=== PATIENT | female | born 1930 | race Caucasian/White ===

== ENCOUNTER → 2017-03-01 | Outpatient (CLI) | payer OTHER, MEDICARE ==
[~2017-03-01] MED LIST: FUROSEMIDE 20 MG/2 ML VIAL IVP ONE; FUROSEMIDE 20 MG/2 ML VIAL ONE
== END ==
LOC: FOBOP 11:17 → EDSTATUS 12:15
PROVIDERS: ATTEND Internal Medicine Hematology & Oncology
PROC: 30233N1 Transfusion of Nonautologous Red Blood Cells into Peripheral Vein, Percutaneous Approach (ICD-10-PCS; principal; 2017-03-01)
DX: D50.9 Iron deficiency anemia, unspecified (principal); Z66 Do not resuscitate
CPT/HCPCS: 36430; P9016

== ENCOUNTER 2017-05-03 07:47 | Outpatient (CLI) | payer OTHER, MEDICARE ==
[2017-05-03] MEDS ORDERED: SODIUM BICARBONATE 150 MEQ in D5W 1,000 ML IV ONE (08:08)
[2017-05-03] MEDS ORDERED: IOPAMIDOL (ISOVUE 370) 100 ML BTL IV ONE (09:40)
[2017-05-03 14:46] VITALS: PULSE 80
[2017-05-03 16:27] VITALS: BP 118/61; RESP 14; TEMP 98.2; O2SAT 96
== END 2017-05-03 16:22 | disposition home or self-care (01) ==
LOC: FIMAGING 07:47
PROVIDERS: ATTEND Surgery
DX: I70.213 Atherosclerosis of native arteries of extremities with intermittent claudication, bilateral legs (principal); I70.242 Atherosclerosis of native arteries of left leg with ulceration of calf; I77.1 Stricture of artery
CPT/HCPCS: 75635; Q9967

== ENCOUNTER → 2017-05-09 | Outpatient (CLI) | payer OTHER, MEDICARE ==
[~2017-05-09] MED LIST changes: +ACETAMINOPHEN 325 MG TAB PO ONE; -FUROSEMIDE 20 MG/2 ML VIAL ONE; +HEPARIN 10,000 UNIT/10 ML MDV ONE; +diphenhydrAMINE 25 MG CAP PO ONE
== END ==
LOC: EDSTATUS 07:30 → FOBOP 10:12
PROVIDERS: ATTEND Internal Medicine Hematology & Oncology
PROC: 30233N1 Transfusion of Nonautologous Red Blood Cells into Peripheral Vein, Percutaneous Approach (ICD-10-PCS; principal; 2017-05-09)
DX: D64.9 Anemia, unspecified (principal)
CPT/HCPCS: 36430; P9016; J1644; J1940

== ENCOUNTER 2017-05-10 09:26 | Observation (INO) | payer OTHER, MEDICARE ==
[~2017-05-10 09:26] MED LIST changes: -ACETAMINOPHEN 325 MG TAB PO ONE; -FUROSEMIDE 20 MG/2 ML VIAL IVP ONE; -HEPARIN 10,000 UNIT/10 ML MDV ONE; +NS 1,000 ML IV SCH; -diphenhydrAMINE 25 MG CAP PO ONE
[2017-05-10 10:08] LABS: HEMATOCRIT 33.2 % (38.0-47.0)
[2017-05-10 10:17] LABS: APTT 33.2 SEC (23.0-38.0); INR 1.11 (0.83-1.16); PROTIME(PATIENT) 14.2 SEC (12.0-15.0)
[2017-05-10] MEDS ORDERED: MIDAZOLAM 2 MG/2 ML VIAL ONE ×2 (10:30→10:31)
[2017-05-10] MEDS ORDERED: fentaNYL 100 MCG/2 ML INJ ONE (10:31)
[2017-05-10] MEDS ORDERED: GLUCAGON,HUMAN RECOMBINANT 1 MG VIAL ONE (11:49)
[2017-05-10] MEDS ORDERED: PROTAMINE SULFATE 50 MG/5 ML VIAL IVP ONE (13:02)
[2017-05-10] MEDS ORDERED: IOPAMIDOL (ISOVUE-300) 100 ML BTL ONE (13:08)
[2017-05-10] MEDS ORDERED: LIDOCAINE 1% 300 MG/30 ML SDV ONE (13:09)
[2017-05-10] MEDS ORDERED: OXYCODONE/APAP 5/325 TAB PO PRN (13:49)
[2017-05-10] MEDS ORDERED: traMADol 50 MG TAB PO PRN (13:53)
[2017-05-10] MEDS ORDERED: ONDANSETRON DISINTEGRATING 4 MG TAB PO PRN (13:57)
[2017-05-10] MEDS ORDERED: ONDANSETRON 4 MG/2 ML VIAL IVP PRN (14:03)
[2017-05-10] MEDS ORDERED: ACETAMINOPHEN 325 MG TAB PO PRN (19:08)
--- NOTE | 2017-05-10 20:48 | GHP ---
[f rep st] HISTORY AND PHYSICAL DATE OF ADMISSION: 05/10/2017 CHIEF COMPLAINT: Somnolence and sedation hypoxia. HISTORY OF PRESENT ILLNESS: An 86-year-old female with a history of longstanding smoking and suspec roberta underlying lung disease who is found to be hypoxic after a procedure by Interventional Radiology for stenting both of her common iliac arteries and her right external iliac artery. The patient saldana s chronic painful ischemic ulceration of her left leg and compromised peripheral vascular flow to he r right. Underwent a successful procedure by Dr. Jernigan to reestablish peripheral flow. Post proce durally the patient was noted to be sedated and her oxygen saturations low. Therefore, admitted for observation overnight. Upon my evaluation, patient is denying any experience of shortness of breat h. Denies any recent cough. Denies subjective fevers or chills. Reports that she has been a longs tanding smoker but does not historically require oxygen. Does wake in the mornings with a chronic c ough that clears by mid day. The patient denies active chest pain, palpitations, headache, vision c hanges. She is feeling very sleepy but not dizzy. Denies any abdominal discomfort, nausea, dysuria . She is experiencing some lower extremity pain. PAST MEDICAL HISTORY: 1. Peripheral vascular disease with a chronic wound of the left lower extremity. 2. Thalassemia minor. 3. History of chronic GI bleed with anemia. 4. CKD. 5. Hypertension. 6. History of renal artery stenosis status post angioplasty. 7. History of breast cancer, status post mastectomy. 8. Chronic iron deficiency anemia secondary to ongoing GI losses not controllable by cauterization alone. 9. Tobacco dependence. SOCIAL HISTORY: She smokes a half a pack a day. Denies alcohol or illicit drugs. FAMILY HISTORY: Positive for celiac disease. REVIEW OF SYSTEMS: A 10-point review of systems is negative with the exception of that reported in the HPI. PHYSICAL EXAMINATION: VITAL SIGNS: Blood pressure 118/61, heart rate 80, respiratory rate 14, satu rating 96% on 3 L, 36.8. GENERAL: This is a pleasant elderly female in no acute distress. HEENT: Notable for dry mucous membranes. EYES: Is negative for any icterus. CARDIAC: Patient is regula r rate and rhythm. A systolic murmur is appreciated. PULMONARY: Patient is clear to auscultation bilaterally. GASTROINTESTINAL: Positive bowel sounds. ABDOMEN: Soft and nontender. MUSCULOSKELE INES: There is trace lower extremity edema. SKIN: There is erythema noted in the left lower extrem ity. NEUROLOGIC: She is sedated but oriented x3. PSYCHIATRIC: She is pleasant and cooperative on interview and examination. DATA: Chest x-ray which I personally reviewed and interpreted shows no acute infiltrates or edema. LABORATORY: White count is 9.39, hematocrit is 33.2, that is post 2-unit transfusion recently. Cre atinine is 1.2. ASSESSMENT AND PLAN: This is an 86-year-old female, presenting with hypoxia. 1. Acute hypoxic respiratory failure presumed secondary to medications and underlying lung disease. We will monitor the patient overnight with supplemental oxygen. Suspect we will be able to wean h er back to her baseline in the morning. Chest x-ray is unconcerning for acute underlying process. 2. Peripheral vascular disease. Will continue patient's statin, calcium channel amira, gabapenti n and follow her post procedurally. Dr. Jernigan will be rounding in the morning and can see her prio r to disposition. 3. Chronic anemia. Patient did receive a 2-unit blood transfusion prior to this procedure. Will r echeck her H and H in the morning. I am holding on heparin prophylaxis since the patient is high ri sk for ongoing chronic gastrointestinal bleed. 4. Chronic kidney disease. I have written the patient for normal saline. Post procedure, I can re check her creatinine in the morning. Prophylaxis again holding secondary to her gastrointestinal bl eed history. 5. Diet: Cardiac. DISPOSITION: I expect in less than 2 midnights if the patient recovers well post procedurally. Dis cussed the case with Dr. Jernigan. Patient will be triaged to the medical-surgical floor for observat ion and support post procedurally. /[id number]/MODL
[2017-05-10] MEDS ORDERED: GABAPENTIN 100 MG CAP PO SCH (21:00)
[2017-05-11] MEDS ORDERED: NON-FORMULARY NEW DRUG (Omeprazole [Prilosec 20 Mg] 20 MG) PO SCH (09:00)
[2017-05-11] MEDS ORDERED: LISINOPRIL 20 MG TAB PO SCH (09:00)
[2017-05-11] MEDS ORDERED: amLODIPine BESYLATE 5 MG TAB PO SCH (09:00)
[2017-05-11] MEDS ORDERED: ATORVASTATIN CALCIUM 10 MG TAB PO SCH (09:00)
[2017-05-11] MEDS ORDERED: ALLOPURINOL 100 MG TAB PO SCH (09:00)
[2017-05-11] MEDS ORDERED: CHOLECALCIFEROL VIT D3 1,000 UNITS TAB PO SCH (09:00)
[2017-05-11] MEDS ORDERED: VENLAFAXINE XR 150 MG CAP PO SCH (09:00)
[2017-05-11] MEDS ORDERED: PANTOPRAZOLE SODIUM 40 MG TAB PO SCH (09:00)
[2017-05-11 11:46] VITALS: BP 134/62; PULSE 72; RESP 18; TEMP 98.1; O2SAT 92
--- NOTE | 2017-05-11 12:56 | SOAPPROG ---
MAAME Progress Note Assessment/Plan: Assessment: SUCCESSFUL BILAT ILIAC ANGIOPLASTIES/ RT LEG DOING WELL/ AMBULATING BETTER LEFT LEG WILL NEED FEMORAL ENDARTECTOMY AND FEM POP FOR ULCER HEALING BUT LEFT LEG IS ALREADY IMPROVED Plan:HOME TODAY/ OFFICE SATURDAY/ ART STUDIES / FEM-POP NEXT WEEK 05/11/17 12:53 Objective: Vital Signs Temp Pulse Resp BP Pulse Ox 36.7 C 72 18 134/62 H 92 05/11/17 11:42 05/11/17 11:42 05/11/17 11:42 05/11/17 11:42 05/11/17 11:42 Laboratory Results 05/10/17 09:57 05/10/17 05/11/17 05/12/17 05:59 05:59 05:59 Intake Total 250 Balance 250 PT 14.2 SEC (12.0-15.0) 05/10/17 09:57 INR 1.11 (0.83-1.16) 05/10/17 09:57 ICD10 Worksheet Patient Problems: Problems Problem Status Onset PVD (peripheral vascular disease) with claudication Acute - ICD10 Problem Qualifiers (1) PVD (peripheral vascular disease) with claudication
--- NOTE | 2017-05-11 13:22 | SOAPPROG ---
SOAP Progress Note Assessment/Plan: Assessment: 1. Legs improved after iliac stenting. 2. Hypoxia resolved. Plan: 1. OK to discharge home today. 2. Return for femoral endarterectomies by Dr. Dykes on Saturday. 05/11/17 13:19 05/11/17 13:22 05/11/17 13:26 Subjective: Considerably less pain and tenderness in legs. Patient and daughter note reduced swelling and redness in lower legs. Objective: Somnolence resolved. Pulse Ox 92--95 on room air now. Lungs clear to auscultation. No hematoma at groins. Capillary refill 2s in feet. No popliteal pulses. Vital Signs Temp Pulse Resp BP Pulse Ox 36.7 C 72 18 134/62 H 92 05/11/17 11:42 05/11/17 11:42 05/11/17 11:42 05/11/17 11:42 05/11/17 11:42 Laboratory Results 05/10/17 09:57 05/10/17 05/11/17 05/12/17 05:59 05:59 05:59 Intake Total 250 Balance 250 PT 14.2 SEC (12.0-15.0) 05/10/17 09:57 INR 1.11 (0.83-1.16) 05/10/17 09:57 ICD10 Worksheet Patient Problems: Problems Problem Status Onset PVD (peripheral vascular disease) with claudication Acute
--- NOTE | 2017-05-16 09:58 | GDS ---
[f rep st] DISCHARGE SUMMARY SERVICE: Hospitalist. CONSULT: General Surgery, Ronald Dykes MD. IR, Ronald Jernigan MD. HISTORY AND PHYSICAL: Please see previously dictated note by Dr. [place]. ADMISSION DIAGNOSES: 1. Acute hypoxic respiratory failure. 2. Peripheral vascular disease. 3. Chronic anemia. 4. Chronic kidney disease. DISCHARGE DIAGNOSES: 1. Acute hypoxic respiratory failure, improving. 2. Peripheral vascular disease. 3. Chronic anemia. 4. Chronic kidney disease. HOSPITAL COURSE BY PROBLEM LIST: 1. Acute hypoxic respiratory failure. This is presumed secondary to medications, underlying lung d isease, status post IR procedure. She had stenting of both common iliac arteries and her right exte rnal iliac artery on the day of admission and had ongoing hypoxia status post this intervention. Mari donovan was admitted to PCU for overnight monitoring. During the course of her stay, hypoxia improved. H er and her daughter felt that she was at baseline and she was going to be discharged home with home health services to follow up on her issues/recheck her wound sites. 2. Peripheral vascular disease, status post stenting as mentioned above. She was followed up with Dr. Dykes and her primary care provider, Dr. Reynoso. Home health care to evaluate wounds and status . 3. Chronic anemia. She has transfusions every few months and is followed by [facility]. Her hematocrit has been stable and she is going to be discharged home to follow up with the m per their recommendations. 4. Chronic kidney disease. Creatinine was stable with baseline of 1.1 to 1.3. At discharge it was 1.2. DISCHARGE INSTRUCTIONS: She has been discharged home and instructions were reviewed with her and he r family member. She has been set up with home health care for reevaluation. She should follow up with Dr. Dykes/General Surgery, and her primary care physician within a few days of discharge. If a t any time she has worsening pain, bleeding from her sites, confusion, shortness of breath, difficul ty breathing, or other concerns, she should return to the emergency department immediately for evalu ation. MEDICATION: Please see computer-generated form. /[id number]/MODL
== END 2017-05-11 13:25 | disposition home health service (06) ==
LOC: FIMAGING 09:26 → F2W 20:14
PROVIDERS: ADMIT Hospitalist; ATTEND Hospitalist
PROC: 047C3DZ Dilation of Right Common Iliac Artery with Intraluminal Device, Percutaneous Approach (ICD-10-PCS; principal; 2017-05-10 18:00)
PROC: 047H3DZ Dilation of Right External Iliac Artery with Intraluminal Device, Percutaneous Approach (ICD-10-PCS; principal; 2017-05-10 18:00)
PROC: B440ZZZ Ultrasonography of Abdominal Aorta (ICD-10-PCS; principal; 2017-05-10 18:00)
PROC: B44HZZZ Ultrasonography of Bilateral Lower Extremity Arteries (ICD-10-PCS; principal; 2017-05-10 18:00)
PROC: 047D3DZ Dilation of Left Common Iliac Artery with Intraluminal Device, Percutaneous Approach (ICD-10-PCS; principal; 2017-05-10 18:00)
DX: I70.242 Atherosclerosis of native arteries of left leg with ulceration of calf (principal); I70.211 Atherosclerosis of native arteries of extremities with intermittent claudication, right leg; J96.01 Acute respiratory failure with hypoxia; L97.329 Non-pressure chronic ulcer of left ankle with unspecified severity; I12.9 Hypertensive chronic kidney disease with stage 1 through stage 4 chronic kidney disease, or unspecified chronic kidney disease; I49.9 Cardiac arrhythmia, unspecified; F17.210 Nicotine dependence, cigarettes, uncomplicated; N18.9 Chronic kidney disease, unspecified; Z85.3 Personal history of malignant neoplasm of breast; D50.0 Iron deficiency anemia secondary to blood loss (chronic); D56.9 Thalassemia, unspecified
CPT/HCPCS: 37221; 37223; 71010; 75716; 97162; 97166; 99152; 99153; C1769; C1874; C1876; C1892; C1894; G8978; G8979; G8980; G8987; G8988; J1610; J1644; J2250; J2720; J3010; Q9967

== ENCOUNTER 2017-05-15 10:42 | Inpatient (IN) | payer OTHER, MEDICARE ==
--- NOTE | 2017-05-15 10:14 | PDANEPAE ---
<Douglas Medeiros - Last Filed: 05/15/17 12:47> ANE Review of Systems - Exercise capacity Exercise capacity: <4 METS, limited by disability - Systems Constitutional: Reports: malaise Cardiac: Reports: no symptoms Respiratory: Reports: no symptoms ANE Patient History - Allergies Allergies/Adverse Reactions: sulfa drugs Allergy (Mild, Uncoded 05/10/17 19:37) Unknown - Home Medications Home Medications: Allopurinol [Allopurinol 100 MG (*)] 100 mg PO DAILY 05/10/17 [Last Taken ] Atorvastatin Calcium [Lipitor 10 mg (*)] 10 mg PO DAILY 05/10/17 [Last Taken 03/27] Cholecalciferol Vit D3 [Vitamin D3 (*)] 1,000 units PO DAILY 05/10/17 [Last Taken 05/15/17] Gabapentin [Neurontin 100 MG (*)] 100 mg PO HS 05/10/17 [Last Taken 05/14/17] Hydrocodone/Acetaminophen [[place] 5/325 (*)] 1 - 2 tab PO Q4H PRN 05/10/17 [Last Taken 05/15/17] Lisinopril [Zestril 20 mg (*)] 20 mg PO HS 05/10/17 [Last Taken 05/14/17] Omeprazole [Prilosec 20 mg] 20 mg PO DAILY 05/10/17 [Last Taken 05/15/17] Venlafaxine Xr [Effexor Xr] 150 mg PO DAILY 05/10/17 [Last Taken 05/15/17] amLODIPine BESYLATE [Norvasc 5 mg (*)] 5 mg PO DAILY 05/10/17 [Last Taken ] celeCOXIB [CeleBREX] 100 mg PO BID 05/10/17 [Last Taken 05/15/17 1 cap] traMADol [Ultram 50 mg (*)] 50 mg PO Q4 PRN 05/10/17 [Last Taken 05/15/17] - Alcohol Use Alcohol Use: None ANE Labs/Vital Signs - Labs Result Diagrams: 05/15/17 12:15 ANE Physical Exam - Airway Neck exam: FROM Mallampati Score: Class 3 Mouth exam: poor dentition - Pulmonary Pulmonary: no respiratory distress - Cardiovascular Cardiovascular: regular rate and rhythym - ASA Status ASA Status: IV ANE Anesthesia Plan Anesthesia Plan: general endotracheal anesthesia (with a. line) <JessewalterReed awad - Last Filed: 05/17/17 09:00> ANE Past Medical History - Cardiovascular History Hx Hypertension: Yes Hx Arrhythmias: No Hx Chest Pain: No Hx Coronary Artery / Peripheral Vascular Disease: Yes Hx CHF / Valvular Disease: No Hx Palpitations: No Cardiovascular History Comment: htn. hyperlipidemia. hypercholesterolemia. pvd. chf. edema - Pulmonary History Hx COPD: No Hx Asthma/Reactive Airway Disease: No Hx Recent Upper Respiratory Infection: No Hx Oxygen in Use at Home: No Hx Sleep Apnea: No Pulmonary History Comment: denies - Neurologic History Hx Cerebrovascular Accident: No Hx Seizures: No Hx Dementia: No - Endocrine History Hx Diabetes: No - Renal History Hx Renal Disorders: Yes Renal History Comment: chronic renal insufficiency - Liver History Hx Hepatic Disorders: No - Neurological & Psychiatric Hx Hx Neurological and Psychiatric Disorders: No - Cancer History Hx Cancer: Yes Cancer History Comment: right breast 1999 - Congenital Disorder History Hx Congenital Disorders: No - GI History Hx Gastrointestinal Disorders: Yes Gastrointestinal History Comment: chronic constipation - Other Health History Other Health History: gout. osteopenia. anemia. thalasssemia - Chronic Pain History Chronic Pain: Yes - Surgical History Prior Surgeries: right mastectomy 1999. angioplasty renal vasc htn 1991. synovial cyst removed 08/2003. cataract. t&a ANE Patient History - Smoking Hx Smoking Status: Heavy smoker - Family Anes Hx Family Hx Anesthesia Complications: none ANE Labs/Vital Signs - Labs Result Diagrams: 05/17/17 03:40 05/17/17 03:40
[2017-05-15] MEDS ORDERED: PROTAMINE SULFATE 50 MG/5 ML VIAL IVP ONE ×2 (11:22→11:46)
[2017-05-15] MEDS ORDERED: THROMBIN (BOVINE) 20,000 UNIT SPRAY TP ONE ×2 (11:22→11:46)
[2017-05-15] MEDS ORDERED: PAPAVERINE HCL 60 MG/2 ML SDV ONE ×2 (11:23→11:46)
[2017-05-15] MEDS ORDERED: BUPIVACAINE 0.5% 30 ML SDV ONE ×2 (11:23→11:46)
[2017-05-15] MEDS ORDERED: IOTHALAMATE MEG (CONRAY) 50 ML VIAL IV ONE ×2 (11:23→11:46)
[2017-05-15] MEDS ORDERED: LR 1,000 ML IV SCH (11:32)
[2017-05-15] MEDS ORDERED: ceFAZolin 2 GM/DEXTROSE 100 ML IV ONE (11:32)
[2017-05-15] MEDS ORDERED: LIDOCAINE 1% 2 ML INJ ID PRN (11:37)
[2017-05-15] MEDS ORDERED: LR 1,000 ML IV ONE (11:37)
--- NOTE | 2017-05-15 11:50 | PDHPUP ---
History & Physical Update H&P update statement: This history and physical update is based on an assessment of the patient which was completed after admission or registration (within 24 hours), but prior to the surgery/procedure. H&P update: H&P reviewed & patient examined, no change in patient's condition since H&P completed
[2017-05-15 12:47] LABS: ANION GAP 8 mEq/L (8-16); CALCIUM 9.8 mg/dL (8.5-10.4); CARBON DIOXIDE 20 mEq/l (22-31); CHLORIDE 110 mEq/L (97-110); CREATININE 1.7 mg/dL (0.6-1.0); GLOMERULAR FILTRATION RATE 29; GLUCOSE 82 mg/dL (70-100); POTASSIUM 5.8 mEq/L (3.5-5.2); SODIUM 138 mEq/L (134-144)
[2017-05-15] MEDS ORDERED: traMADol 50 MG TAB PO ONE ×2 (12:59→13:15)
[2017-05-15] MEDS ORDERED: traMADol 50 MG TAB ONE (13:28)
[2017-05-15] MEDS: NS 1,000 ML IV SCH (18:33)
[2017-05-15 19:23] LABS: COLOR PALE YELLOW; LEUKOCYTE ESTERASE,URINE 1+ (NEGATIVE); NITRITE,URINE NEGATIVE (NEGATIVE)
[2017-05-15 19:30] LABS: MUCUS TRACE /lpf (NONE-1+)
[2017-05-15 19:31] LABS: RBC,URINE NONE SEEN /hpf (0-3)
[2017-05-15] MEDS: HYDROCODONE/APAP 5/325 TAB PO PRN (20:45)
[2017-05-15] MEDS: GABAPENTIN 100 MG CAP PO SCH (20:46)
[2017-05-16 04:27] LABS: % IMMATURE GRANULYOCYTES 0.7 % (0.0-1.1); ABSOLUTE IMMATURE GRANULOCYTES 0.06 10^3/uL (0.00-0.10); ADD DIFF? NO; ADD MORPH? YES; ADD SCAN? NO; ATYPICAL LYMPHOCYTE FLAG 0 (0-99); FRAGMENT RBC FLAG 40 (0-99); HEMATOCRIT 29.5 % (38.0-47.0); HEMOGLOBIN 9.2 g/dL (12.6-16.3); LEFT SHIFT FLG 30 (0-99); LIPEMIA HEMOLYSIS FLAG 80 (0-99); MEAN CELL HEMOGLOBIN 22.7 pg (27.9-34.1); MEAN CELL HEMOGLOBIN CONCENTR. 31.2 g/dL (32.4-36.7); MEAN CELL VOLUME 72.8 fL (81.5-99.8); MEAN PLATELET VOLUME 12.6 fL (8.7-11.7); PLATELET CLUMPS FLAG 0 (0-99); PLATELET COUNT 204 10^3/uL (150-400); RED BLOOD CELL COUNT 4.05 10^6/uL (4.18-5.33)
[2017-05-16 04:29] LABS: RED CELL DISTRIBUTION WIDTH 20.9 % (11.5-15.2)
--- NOTE | 2017-05-16 04:32 | GCON ---
[f rep st] CONSULTATION THIS IS A MEDICINE CONSULTATION, AT THE REQUEST OF DR. DAMARIS HARDWICK, FOR EVALUATION AND MANAGEMENT OF ACUTE KIDNEY INJURY. DATE OF CONSULTATION: 05/15/2017 CHIEF COMPLAINT: Leg pain. HISTORY: This is an 86-year-old female, who has a chronic posterior lower leg ulceration related to initially trauma and nonhealing secondary to significant arterial disease. She has recently underg one vascular stenting of both her common iliac arteries and a right external iliac artery, and was b rought in for a planned femoral-popliteal bypass surgery. In the preop evaluation it was noted that her kidney function was worse than her usual baseline, with a creatinine of 1.7 today, and a genera l baseline around 1.5. In discussion with the patient, she does not note any recent illness, but st ates that she is aware that she had dye recently and wonders if her kidney function is off secondary to that. She notes she drinks a large amount of fluids every day, and this has not changed. She h as been eating well. She has had no urinary issues that she is aware of. She has had no fevers or chills. Her leg does continue to hurt. PAST MEDICAL HISTORY: Includes: 1. Peripheral vascular disease, with chronic lower extremity wound. 2. History of thalassemia minor. 3. History of chronic GI bleed, with chronic anemia. 4. Chronic kidney disease. Baseline creatinine approximately 1.5. 5. Hypertension. 6. Renal artery stenosis, status post angioplasty. 7. History of breast cancer, status post mastectomy. 8. Current tobacco use. 9. Tonsillectomy and adenoidectomy. 10. Hemilaminectomy L5 through S1. 11. Open cholecystectomy. 12. Bilateral cataract surgery. FAMILY HISTORY: Parents are . SOCIAL HISTORY: Patient is a daily pack per day smoker. She denies alcohol or illicit drugs. MEDICATIONS: Include at home: 1. Tramadol. 2. Celebrex. 3. Amlodipine. 4. Venlafaxine. 5. Omeprazole. 6. Lisinopril. 7. [place]. 8. Gabapentin. 9. Cholecalciferol. 10. Atorvastatin. 11. Allopurinol. ALLERGIES: Include sulfa. PHYSICAL EXAMINATION: VITAL SIGNS: Reviewed and remarkable for a blood pressure of 148/100, O2 sat s of 88% on room air, temperature is 36.7. GENERAL APPEARANCE: Elderly female, awake, and alert. No acute distress. EYES: Anicteric. HEENT: Poor dentition. Oropharynx clear. CARDIOVASCULAR: Regular rate and rhythm, no MRG. PULMO NARY: CTA bilaterally to anterior exam. ABDOMEN: Soft, nontender, nondistended. EXTREMITIES: Le ft lower extremity with chronic wounds and tender to palpation. There is trace lower extremity anahi a. NEUROLOGIC/PSYCHIATRIC: Oriented and appropriate, pleasant. CLINICAL DATA: Labs are reviewed. Significant for a fairly recent normal CBC. Chemistry is notabl e for a potassium of 5.8, creatinine of 1.7. Chest x-ray, from 05/10/2017, personally reviewed and interpreted, shows nothing acute. ASSESSMENT/PLAN: This is an 86-year-old female, with past medical history of chronic kidney disease and peripheral vascular disease, presenting for a femoral-popliteal bypass, found to have acute kid rudy injury on chronic kidney disease. 1. Acute kidney injury on chronic kidney disease. Patient is noted to have significant fluctuation in her baseline creatinine, but does appear to usually run closer to 1.5. She did recently have a dye load for her angioplasty and certainly could be some residual contrast-induced nephropathy prese nt. She does not appear to be dry. We will check a bladder scan, but she does not have any complai nts that would indicate urinary retention. We will check a urinalysis to rule out a urinary tract i nfection, but she does not have any suggestion of infection by history. Will provide gentle IV flui ds overnight. We will calculate a fractional excretion of sodium base once her urine studies have b een obtained. 2. Hyperkalemia, this is mild and in the setting of acute kidney injury on top of chronic kidney di sease. We will recheck in the morning. Will obtain an EKG to rule out any associated EKG changes. We will hold off on any medication, other than saline, to decrease her potassium, unless her EKG sh ows hyperkalemic changes. 3. Peripheral vascular disease, with plans for femoral-popliteal bypass. She is status post angiop lasty last week. She does have chronic lower extremity wounds associated with this. Wound Care kevin l be consulted. 4. Hypertension. Given her acute kidney injury, will hold her lisinopril. Her blood pressure curr ently is within goal for her age. We will continue her amlodipine and monitor. 5. Pain. Given her acute kidney injury, will hold her usual Celebrex. She does take renally dosed gabapentin and renally dosed allopurinol, which can be continued. Pain is currently controlled on her usual tramadol and [place]. 6. Disposition: Inpatient status. Patient will need greater than 48-hour stay for evaluation and management of above. 7. The patient is new to my care. Old records reviewed, summarized as per History Of Present Illne ss and Past Medical History. Care plan reviewed with Surgery, including plans for management of acu te kidney injury. Medicine will continue to follow while patient is in-house. Thank you for this c onsultation. /[id number]/MODL
[2017-05-16 04:39] LABS: ANION GAP 9 mEq/L (8-16); CALCIUM 9.2 mg/dL (8.5-10.4); CARBON DIOXIDE 19 mEq/l (22-31); CHLORIDE 113 mEq/L (97-110); CREATININE 1.4 mg/dL (0.6-1.0); GLOMERULAR FILTRATION RATE 36; GLUCOSE 72 mg/dL (70-100); POTASSIUM 4.6 mEq/L (3.5-5.2); SODIUM 141 mEq/L (134-144)
[2017-05-16 05:16] LABS: PLATELET ESTIMATE ADEQUATE (ADEQ)
[2017-05-16 05:19] LABS: HYPOCHROMIA 1+; POLYCHROMASIA 1+; TARGET CELLS 1+
--- NOTE | 2017-05-16 08:44 | WOCRNPDOC ---
GORDY Advanced Assessment Note - Skin Integrity Problem, Advanced Assess Left Lower Leg Dressing Type: Allevyn Life Dressing Description: Clean/Dry, Intact Exudate Amount: Scant Exudate Characteristic(s): Serosanguinous Integumentary Issue Intervention: Visualized Under Dressing Ector Wound Tissue: Erythema, Excoriated, Shiny, Thin Wound Bed Constitution: Adhered Slough, Loose Slough Wound Edges: Well Defined Site Odor: Slight Site Measurement - Head-to-Toe Length X Width X Depth (cm): Left Medial art ulcer: 1x1x0.2, Posterior: 2x1.5x1, Lateral: 1.5x1x0.2 Extremity Temperature: Warm Skin Integrity Problem Comment: 3 Seperate wounds surrounded by ector wound erythema and excoriation. Patient reports having a lot of itching with uncontrolled scratching recently. All wounds are 100% slough. Will initiate autolytic debridement with a iodosorb gel which will also address the probably biofilm development on her wounds. Will need to fill defect on posterior wound with alginate. Wound care will round again on Monday 05/21. Report to Jasmyn LOERA.
[2017-05-16] MEDS ORDERED: NON-FORMULARY NEW DRUG (Omeprazole [Prilosec 20 Mg] 20 MG) PO SCH (09:00)
[2017-05-16] MEDS: ATORVASTATIN CALCIUM 10 MG TAB PO SCH (09:48)
[2017-05-16] MEDS: VENLAFAXINE XR 150 MG CAP PO SCH (09:48)
[2017-05-16] MEDS: CHOLECALCIFEROL VIT D3 1,000 UNITS TAB PO SCH (09:49)
[2017-05-16] MEDS: NS 1,000 ML IV SCH ×2 (09:49→23:00)
[2017-05-16] MEDS: PANTOPRAZOLE SODIUM 40 MG TAB PO SCH (09:49)
[2017-05-16] MEDS: amLODIPine BESYLATE 5 MG TAB PO SCH (09:49)
[2017-05-16] MEDS: HYDROCODONE/APAP 5/325 TAB PO PRN ×2 (13:15→23:39)
--- NOTE | 2017-05-16 16:08 | HOSPPROG ---
Hospitalist Progress Note Objective: Vital Signs Temp Pulse Resp BP Pulse Ox 36.8 C 76 18 119/66 95 05/16/17 15:13 05/16/17 15:13 05/16/17 15:13 05/16/17 15:13 05/16/17 15:13 Laboratory Results 05/16/17 03:37 05/16/17 03:37 05/15/17 05/16/17 05/17/17 06:59 06:59 06:59 Intake Total 1400 Output Total 350 Balance 1050 ICD10 Worksheet Patient Problems: Problems Problem Status Onset PVD (peripheral vascular disease) with claudication Acute
--- NOTE | 2017-05-16 17:18 | HOSPPROG ---
Hospitalist Progress Note Assessment/Plan: DIAGNOSES: -acute on chronic renal failure, hemodynamic etiology and responding well to hydration -hyperkalemia resolved -peripheral vascular disease with nonhealing ankle ulcer -chronic microcytic anemia with repleted iron stores PLANS: The patient's surgery has been delayed until tomorrow Will continue hydration and follow renal function and potassium closely NPO after midnight SUBJECTIVE: The patient has intermittent moderate to mild pain at her ankle otherwise feels comfortable and is eating well OBJECTIVE Vitals reviewed: Stable without fever [employer], my review: Sinus Exam: alert oriented skin warm dry color ok resps not labored lungs clear BSs heart regular abd soft nondistended nontender, bowel sounds present iv site ok Lab data creatinine improved to 1.4 Objective: Vital Signs Temp Pulse Resp BP Pulse Ox 36.8 C 76 18 119/66 95 05/16/17 15:13 05/16/17 15:13 05/16/17 15:13 05/16/17 15:13 05/16/17 15:13 Laboratory Results 05/16/17 03:37 05/16/17 03:37 05/15/17 05/16/17 05/17/17 06:59 06:59 06:59 Intake Total 1400 Output Total 350 Balance 1050 ICD10 Worksheet Patient Problems: Problems Problem Status Onset PVD (peripheral vascular disease) with claudication Acute
--- NOTE | 2017-05-16 18:58 | SOAPPROG ---
MAAME Progress Note Assessment/Plan: Assessment: APPEARS TO BE DOING WELL WITH CORRECTION OF HER POTASSIUM AND CREATININE LEVELS/ RISKS AND OPTIONS FULLY DISCUSSED AND SHE WISHES TO PROCEED WITH SURGERY TOMORROW Plan: LEFT FEM-POP BYPASS 05/16/17 18:57 Objective: Vital Signs Temp Pulse Resp BP Pulse Ox 36.8 C 76 18 119/66 95 05/16/17 15:13 05/16/17 15:13 05/16/17 15:13 05/16/17 15:13 05/16/17 15:13 Laboratory Results 05/16/17 03:37 05/16/17 03:37 05/15/17 05/16/17 05/17/17 05:59 05:59 05:59 Intake Total 1400 900 Output Total 200 150 Balance 1200 750 ICD10 Worksheet Patient Problems: Problems Problem Status Onset PVD (peripheral vascular disease) with claudication Acute
[2017-05-16] MEDS: GABAPENTIN 100 MG CAP PO SCH (21:01)
[2017-05-17 04:39] LABS: % IMMATURE GRANULYOCYTES 0.9 % (0.0-1.1); ABSOLUTE IMMATURE GRANULOCYTES 0.08 10^3/uL (0.00-0.10); ADD DIFF? NO; ADD MORPH? YES; ADD SCAN? NO; ATYPICAL LYMPHOCYTE FLAG 40 (0-99); FRAGMENT RBC FLAG 60 (0-99); HEMATOCRIT 28.7 % (38.0-47.0); HEMOGLOBIN 9.1 g/dL (12.6-16.3); LEFT SHIFT FLG 30 (0-99); LIPEMIA HEMOLYSIS FLAG 80 (0-99); MEAN CELL HEMOGLOBIN CONCENTR. 31.7 g/dL (32.4-36.7); MEAN CELL VOLUME 72.5 fL (81.5-99.8); PLATELET CLUMPS FLAG 10 (0-99); PLATELET COUNT 210 10^3/uL (150-400); RED BLOOD CELL COUNT 3.96 10^6/uL (4.18-5.33)
[2017-05-17 04:43] LABS: INR 1.15 (0.83-1.16); PROTIME(PATIENT) 14.7 SEC (12.0-15.0)
[2017-05-17 04:44] LABS: RED CELL DISTRIBUTION WIDTH 20.7 % (11.5-15.2)
[2017-05-17 04:58] LABS: ALANINE AMINOTRANSFERASE 31 IU/L (9-52); ALBUMIN 2.7 g/dL (3.5-5.0); ALKALINE PHOSPHATASE 97 IU/L (38-126); ANION GAP 7 mEq/L (8-16); ASPARTATE AMINOTRANSFERASE 17 IU/L (14-46); BILIRUBIN,TOTAL 0.7 mg/dL (0.1-1.4); BILIRUBIN-CONJUGATED 0.4 mg/dL (0.0-0.5); BILIRUBIN-UNCONJUGATED 0.3 mg/dL (0.0-1.1); CALCIUM 9.1 mg/dL (8.5-10.4); CARBON DIOXIDE 21 mEq/l (22-31); CHLORIDE 113 mEq/L (97-110); CREATININE 1.3 mg/dL (0.6-1.0); GLOMERULAR FILTRATION RATE 39; GLUCOSE 77 mg/dL (70-100); POTASSIUM 4.7 mEq/L (3.5-5.2); SODIUM 141 mEq/L (134-144); TOTAL PROTEIN 5.1 g/dL (6.3-8.2)
[2017-05-17 05:02] LABS: HYPOCHROMIA 1+; MICROCYTES 1+; POLYCHROMASIA 1+
[2017-05-17 05:03] LABS: ACANTHOCYTES 1+; PLATELET ESTIMATE ADEQUATE (ADEQ); SCHISTOCYTES 1+; TARGET CELLS 1+
[2017-05-17] MEDS: HYDROCODONE/APAP 5/325 TAB PO PRN (05:55)
[2017-05-17] MEDS: ATORVASTATIN CALCIUM 10 MG TAB PO SCH (08:47)
[2017-05-17] MEDS: VENLAFAXINE XR 150 MG CAP PO SCH (08:47)
[2017-05-17] MEDS: CHOLECALCIFEROL VIT D3 1,000 UNITS TAB PO SCH (08:47)
[2017-05-17] MEDS: PANTOPRAZOLE SODIUM 40 MG TAB PO SCH (08:47)
[2017-05-17] MEDS: amLODIPine BESYLATE 5 MG TAB PO SCH (08:47)
[2017-05-17] MEDS ORDERED: THROMBIN (BOVINE) 20,000 UNIT SPRAY TP ONE (09:03)
[2017-05-17] MEDS ORDERED: PAPAVERINE HCL 60 MG/2 ML SDV ONE (09:03)
[2017-05-17] MEDS ORDERED: IOTHALAMATE MEG (CONRAY) 50 ML VIAL IV ONE ×2 (09:03→13:24)
[2017-05-17] MEDS ORDERED: PROTAMINE SULFATE 50 MG/5 ML VIAL IVP ONE (09:03)
[2017-05-17] MEDS ORDERED: BUPIVACAINE 0.5% 30 ML SDV ONE (09:03)
[2017-05-17] MEDS ORDERED: NS 1,000 ML IV ONE (11:32)
--- NOTE | 2017-05-17 11:47 | PDANEPAE ---
ANE Past Medical History - Cardiovascular History Hx Hypertension: Yes Hx Arrhythmias: No Hx Chest Pain: No Hx Coronary Artery / Peripheral Vascular Disease: Yes Hx CHF / Valvular Disease: No Hx Palpitations: No Cardiovascular History Comment: htn. hyperlipidemia. hypercholesterolemia. pvd. chf. edema - Pulmonary History Hx COPD: No Hx Asthma/Reactive Airway Disease: No Hx Recent Upper Respiratory Infection: No Hx Oxygen in Use at Home: No Hx Sleep Apnea: No Sleep Apnea Screening Result - Last Documented: Positive Pulmonary History Comment: denies - Neurologic History Hx Cerebrovascular Accident: No Hx Seizures: No Hx Dementia: No - Endocrine History Hx Diabetes: No Obesity: yes, mild - Renal History Hx Renal Disorders: Yes Renal History Comment: chronic renal insufficiency - Liver History Hx Hepatic Disorders: No - Neurological & Psychiatric Hx Hx Neurological and Psychiatric Disorders: No - Cancer History Hx Cancer: Yes Cancer History Comment: right breast 1999 - Congenital Disorder History Hx Congenital Disorders: No - GI History Hx Gastrointestinal Disorders: Yes Gastrointestinal History Comment: chronic constipation - Other Health History Other Health History: gout. osteopenia. anemia. thalasssemia - Chronic Pain History Chronic Pain: Yes - Surgical History Prior Surgeries: right mastectomy 1999. angioplasty renal vasc htn 1991. synovial cyst removed 08/2003. cataract. t&a ANE Patient History - Allergies Allergies/Adverse Reactions: sulfa drugs Allergy (Mild, Uncoded 05/10/17 19:37) Unknown - Home Medications Home Medications: Allopurinol [Allopurinol 100 MG (*)] 100 mg PO DAILY 05/10/17 [Last Taken ] Atorvastatin Calcium [Lipitor 10 mg (*)] 10 mg PO DAILY 05/10/17 [Last Taken 03/27] Cholecalciferol Vit D3 [Vitamin D3 (*)] 1,000 units PO DAILY 05/10/17 [Last Taken 05/15/17] Gabapentin [Neurontin 100 MG (*)] 100 mg PO HS 05/10/17 [Last Taken 05/14/17] Hydrocodone/Acetaminophen [[place] 5/325 (*)] 1 - 2 tab PO Q4H PRN 05/10/17 [Last Taken 05/15/17] Lisinopril [Zestril 20 mg (*)] 20 mg PO HS 05/10/17 [Last Taken 05/14/17] Omeprazole [Prilosec 20 mg] 20 mg PO DAILY 05/10/17 [Last Taken 05/15/17] Venlafaxine Xr [Effexor Xr] 150 mg PO DAILY 05/10/17 [Last Taken 05/15/17] amLODIPine BESYLATE [Norvasc 5 mg (*)] 5 mg PO DAILY 05/10/17 [Last Taken ] celeCOXIB [CeleBREX] 100 mg PO BID 05/10/17 [Last Taken 05/15/17 1 cap] traMADol [Ultram 50 mg (*)] 50 mg PO Q4 PRN 05/10/17 [Last Taken 05/15/17] - NPO status NPO Since - Liquids (Date): 05/15/17 NPO Since - Liquids (Time): 07:00 NPO Since - Solids (Date): 05/14/17 NPO Since - Solids (Time): 20:00 - Smoking Hx Smoking Status: Heavy smoker - Alcohol Use Alcohol Use: None - Family Anes Hx Family Hx Anesthesia Complications: none ANE Labs/Vital Signs - Labs Result Diagrams: 05/17/17 03:40 05/17/17 03:40 - Vital Signs Blood Pressure: 159/70 Heart Rate: 56 Respiratory Rate: 14 O2 Sat (%): 96 Height: 167.64 cm Weight: 83.1 kg ANE Physical Exam - Airway Neck exam: FROM Mouth exam: poor dentition, dentures - Pulmonary Pulmonary: no respiratory distress, reduced air movement - Cardiovascular Cardiovascular: regular rate and rhythym - ASA Status ASA Status: III ANE Anesthesia Plan Anesthesia Plan: GA w LMA Lines/Monitors: arterial line
[2017-05-17] MEDS ORDERED: PROPOFOL 200 MG/20 ML VIAL ONE (11:54)
[2017-05-17] MEDS ORDERED: fentaNYL 100 MCG/2 ML INJ ONE ×4 (11:54→15:47)
[2017-05-17] MEDS ORDERED: LIDOCAINE 2% 5 ML SDV ONE ×2 (11:55→13:03)
[2017-05-17] MEDS ORDERED: DEXAMETHASONE 4 MG/ML VIAL ONE (11:56)
[2017-05-17] MEDS ORDERED: ONDANSETRON 4 MG/2 ML VIAL ONE (11:56)
[2017-05-17] MEDS ORDERED: DEXMEDETOMIDINE HCL 200 MCG/2 ML VIAL IV ONE (12:25)
[2017-05-17] MEDS ORDERED: ceFAZolin 1 GM VIAL ONE ×2 (12:38)
[2017-05-17] MEDS ORDERED: KETAMINE 100 MG/10 ML SYR ONE (12:47)
[2017-05-17] MEDS ORDERED: NALOXONE HCL 0.4 MG/ML INJ IVP PRN (13:27)
[2017-05-17] MEDS ORDERED: LABETALOL HCL 50 MG/10 ML SYR IVP PRN (13:27)
[2017-05-17] MEDS ORDERED: ONDANSETRON 4 MG/2 ML VIAL IVP PRN (13:27)
[2017-05-17] MEDS ORDERED: DEXAMETHASONE 4 MG/ML VIAL IVP PRN (13:27)
[2017-05-17] MEDS ORDERED: OXYCODONE/APAP 5/325 TAB PO PRN (13:27)
[2017-05-17] MEDS ORDERED: PROMETHAZINE HCL 25 MG/ML INJ IVP PRN (13:27)
[2017-05-17] MEDS ORDERED: HEPARIN 10,000 UNIT/10 ML MDV ONE (13:33)
[2017-05-17] MEDS ORDERED: HYDROmorphONE/DILAUDID 1 MG/ML SYR IVP PRN (15:24)
--- NOTE | 2017-05-17 15:26 | POSTOPPROG ---
Post Op Note Date of Operation: 05/17/17 Surgeon: Ronald Dykes Assessment Coordinator: Kelly Peres Anesthesiologist: Efren Yanes Anesthesia: GET(General Endotracheal) Pre-op Diagnosis: PVD, nonhealing ulcer Post-op Diagnosis: same Procedure: Left fem bypass c femoral endarectomy and profundoplasty Findings: fair to weak doppler pedal pulses post procedure, improved from preop Inf/Abcess present in the surg proc area at time of surgery?: No EBL: 50-100 Complications: none
[2017-05-17] MEDS: fentaNYL 100 MCG/2 ML INJ IVP PRN ×2 (15:49→16:14)
--- NOTE | 2017-05-17 15:50 | HOSPPROG ---
Hospitalist Progress Note Assessment/Plan: DIAGNOSES: -acute on chronic renal failure, hemodynamic etiology and responding well to hydration -will need to follow closely post op but I expect will do fine -hyperkalemia resolved -peripheral vascular disease with nonhealing ankle ulcer; now s/p femoral a. 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: Sinus Exam: alert oriented skin warm dry color ok resps not labored lungs clear BSs heart regular abd soft nondistended nontender, bowel sounds present iv site ok Lab data: creatinine improved to 1.3 Objective: Vital Signs Temp Pulse Resp BP Pulse Ox 36.9 C 56 L 12 100/54 L 95 05/17/17 15:35 05/17/17 15:35 05/17/17 15:42 05/17/17 15:42 05/17/17 15:42 Laboratory Results 05/17/17 03:40 05/17/17 03:40 05/16/17 05/17/17 05/18/17 06:59 06:59 06:59 Intake Total 1400 1950 1100 Output Total 350 1250 650 Balance 1050 700 450 PT 14.7 SEC (12.0-15.0) 05/17/17 03:40 INR 1.15 (0.83-1.16) 05/17/17 03:40 ICD10 Worksheet Patient Problems: Problems Problem Status Onset PVD (peripheral vascular disease) with claudication Acute
[2017-05-17] MEDS ORDERED: HYDROmorphONE/DILAUDID 1 MG/ML SYR ONE (16:24)
[2017-05-17] MEDS: HYDROmorphONE/DILAUDID 1 MG/ML SYR IVP PRN ×2 (16:50→17:13)
--- NOTE | 2017-05-17 16:54 | POSTANESTH ---
Post Anesthetic Evaluation Cardiovascular Status: Normal, Stable, Similar to Pre-Op Cond Respiratory Status: Similar to Pre-op Cond. Level of Consciousness/Mental Status: Can Participate in Eval, Moderately Sleepy Pain Control: Adequate, Prn Tx Ordered Nausea/Vomiting Control: Adequate, Prn Tx Ordered Complications Possibly Related to Anesthesia: None Noted
[2017-05-17] MEDS: NS 1,000 ML IV SCH (19:00)
[2017-05-17] MEDS: GABAPENTIN 100 MG CAP PO SCH (20:41)
[2017-05-18] MEDS: HYDROCODONE/APAP 5/325 TAB PO PRN ×4 (04:30→23:22)
[2017-05-18] MEDS: NS 1,000 ML IV SCH (04:42)
[2017-05-18] MEDS: amLODIPine BESYLATE 5 MG TAB PO SCH (05:13)
[2017-05-18 05:41] LABS: HEMATOCRIT 28.4 % (38.0-47.0); HEMOGLOBIN 8.9 g/dL (12.6-16.3)
[2017-05-18 06:01] LABS: ANION GAP 8 mEq/L (8-16); CALCIUM 8.6 mg/dL (8.5-10.4); CARBON DIOXIDE 19 mEq/l (22-31); CHLORIDE 113 mEq/L (97-110); CREATININE 1.3 mg/dL (0.6-1.0); GLOMERULAR FILTRATION RATE 39; GLUCOSE 107 mg/dL (70-100); POTASSIUM 4.8 mEq/L (3.5-5.2); SODIUM 140 mEq/L (134-144)
[2017-05-18] MEDS: ATORVASTATIN CALCIUM 10 MG TAB PO SCH (08:46)
[2017-05-18] MEDS: PANTOPRAZOLE SODIUM 40 MG TAB PO SCH (08:46)
[2017-05-18] MEDS: CHOLECALCIFEROL VIT D3 1,000 UNITS TAB PO SCH (08:46)
[2017-05-18] MEDS: VENLAFAXINE XR 150 MG CAP PO SCH (08:46)
[2017-05-18] MEDS ORDERED: NS 500 ML IV ONE (12:14)
--- NOTE | 2017-05-18 12:19 | HOSPPROG ---
Hospitalist Progress Note Assessment/Plan: DIAGNOSES: -acute hypotension just now, suspect due to pain med she just had, but cause uncertain -acute on chronic renal failure, hemodynamic etiology and responding well to hydration -will continue to follow, and will need to maintain good blood pressures -hyperkalemia resolved -peripheral vascular disease with nonhealing ankle ulcer; now s/p femoral a. 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, 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: Sinus Exam: alert oriented relaxed skin warm dry color ok, good cap refill in fingers resps not labored lungs clear BSs heart regular abd soft nondistended nontender, bowel sounds present leg with good color to toes and warm no visible sign of bleeding iv site ok Lab data: creatinine stable 1.3, baseline 1.1 3 months ago Objective: Vital Signs Temp Pulse Resp BP Pulse Ox 36.8 C 73 13 122/46 H 96 05/18/17 08:00 05/18/17 10:00 05/18/17 10:00 05/18/17 10:00 05/18/17 10:00 Laboratory Results 05/18/17 04:35 05/18/17 04:35 05/17/17 05/18/17 05/19/17 06:59 06:59 06:59 Intake Total 1950 4130 Output Total 1250 1400 Balance 700 2730 PT 14.7 SEC (12.0-15.0) 05/17/17 03:40 INR 1.15 (0.83-1.16) 05/17/17 03:40 ICD10 Worksheet Patient Problems: Problems Problem Status Onset PVD (peripheral vascular disease) with claudication Acute
--- NOTE | 2017-05-18 12:32 | SOAPPROG ---
MAAME Progress Note Assessment/Plan: Assessment: s/p left femoral bypass with femoral endarterectomy Doing very well No bending at hip PT Can transfer to SDU Heparin 5000 units SQ TID S: Seems slightly confused but well Foot is warm with good sensation dressings dry Pulse not palpable to me Sitting in bed with family at bedside Lungs decreased at bases Regular rate Plan: 05/18/17 12:29 Objective: Vital Signs Temp Pulse Resp BP Pulse Ox 36.8 C 79 18 72/44 L 95 05/18/17 08:00 05/18/17 12:00 05/18/17 12:00 05/18/17 12:00 05/18/17 12:00 Laboratory Results 05/18/17 04:35 05/18/17 04:35 05/17/17 05/18/17 05/19/17 05:59 05:59 05:59 Intake Total 1950 4130 Output Total 1400 1400 Balance 550 2730 PT 14.7 SEC (12.0-15.0) 05/17/17 03:40 INR 1.15 (0.83-1.16) 05/17/17 03:40 ICD10 Worksheet Patient Problems: Problems Problem Status Onset PVD (peripheral vascular disease) with claudication Acute
[2017-05-18] MEDS: HEPARIN 5,000 UNIT/0.5 ML SYR SC SCH ×2 (16:36→22:43)
[2017-05-18] MEDS: GABAPENTIN 100 MG CAP PO SCH (19:54)
[2017-05-19] MEDS: HYDROCODONE/APAP 5/325 TAB PO PRN ×5 (04:03→22:49)
[2017-05-19] MEDS: HEPARIN 5,000 UNIT/0.5 ML SYR SC SCH ×3 (04:04→22:49)
[2017-05-19 08:42] LABS: % IMMATURE GRANULYOCYTES 0.9 % (0.0-1.1); ABSOLUTE IMMATURE GRANULOCYTES 0.08 10^3/uL (0.00-0.10); ADD DIFF? NO; ADD MORPH? YES; ADD SCAN? NO; ATYPICAL LYMPHOCYTE FLAG 40 (0-99); FRAGMENT RBC FLAG 40 (0-99); HEMATOCRIT 27.3 % (38.0-47.0); HEMOGLOBIN 8.8 g/dL (12.6-16.3); LEFT SHIFT FLG 10 (0-99); LIPEMIA HEMOLYSIS FLAG 80 (0-99); MEAN CELL HEMOGLOBIN 22.7 pg (27.9-34.1); MEAN CELL HEMOGLOBIN CONCENTR. 32.2 g/dL (32.4-36.7); MEAN CELL VOLUME 70.5 fL (81.5-99.8); PLATELET CLUMPS FLAG 10 (0-99); PLATELET COUNT 233 10^3/uL (150-400); RED BLOOD CELL COUNT 3.87 10^6/uL (4.18-5.33)
--- NOTE | 2017-05-19 08:50 | SOAPPROG ---
SOAP Progress Note Assessment/Plan: Assessment: s/p left femoral bypass with femoral endarterectomy Iliac stents Some abdominal pain today - getting labs No bending at hip PT Heparin 5000 units SQ TID S: Complaining of epigastric discomfort and slight nausea. Foot is warm with good sensation Incisions cdi Pulse not palpable to me Lungs decreased at bases Regular rate Plan: 05/18/17 12:29 05/19/17 08:49 Objective: Vital Signs Temp Pulse Resp BP Pulse Ox 36.8 C 75 14 152/63 H 93 05/19/17 08:00 05/19/17 08:00 05/19/17 08:00 05/19/17 08:00 05/19/17 08:00 05/18/17 05/19/17 05/20/17 05:59 05:59 05:59 Intake Total 4130 700 Output Total 1400 1750 Balance 2730 -1050 PT 14.7 SEC (12.0-15.0) 05/17/17 03:40 INR 1.15 (0.83-1.16) 05/17/17 03:40 ICD10 Worksheet Patient Problems: Problems Problem Status Onset PVD (peripheral vascular disease) with claudication Acute
[2017-05-19 08:58] LABS: RED CELL DISTRIBUTION WIDTH 20.5 % (11.5-15.2)
[2017-05-19 09:08] LABS: ANION GAP 7 mEq/L (8-16); CALCIUM 8.9 mg/dL (8.5-10.4); CARBON DIOXIDE 21 mEq/l (22-31); CHLORIDE 113 mEq/L (97-110); CREATININE 1.1 mg/dL (0.6-1.0); GLOMERULAR FILTRATION RATE 47; GLUCOSE 75 mg/dL (70-100); POTASSIUM 4.1 mEq/L (3.5-5.2); SODIUM 141 mEq/L (134-144)
[2017-05-19] MEDS: CHOLECALCIFEROL VIT D3 1,000 UNITS TAB PO SCH (09:13)
[2017-05-19] MEDS: PANTOPRAZOLE SODIUM 40 MG TAB PO SCH (09:13)
[2017-05-19] MEDS: VENLAFAXINE XR 150 MG CAP PO SCH (09:13)
[2017-05-19] MEDS: amLODIPine BESYLATE 5 MG TAB PO SCH (09:13)
[2017-05-19] MEDS: ATORVASTATIN CALCIUM 10 MG TAB PO SCH (09:13)
[2017-05-19 10:07] LABS: PLATELET ESTIMATE ADEQUATE (ADEQ)
[2017-05-19 10:08] LABS: ELLIPTOCYTES 1+; HYPOCHROMIA 2+; MICROCYTES 2+; TARGET CELLS 1+
[2017-05-19 10:09] LABS: POLYCHROMASIA 1+; SCHISTOCYTES 1+
--- NOTE | 2017-05-19 15:40 | HOSPPROG ---
Hospitalist Progress Note Assessment/Plan: DIAGNOSES: -acute on chronic renal failure, hemodynamic etiology and responding well to hydration -will continue to follow, and will need to maintain good blood pressures -hyperkalemia resolved -peripheral vascular disease with nonhealing ankle ulcer; now s/p femoral a. 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: Sinus Exam: alert oriented relaxed skin warm dry color ok, good cap refill in fingers resps not labored lungs clear BSs heart regular abd soft nondistended nontender, bowel sounds present leg with good color and warm no visible sign of bleeding iv site ok Lab data: now back to baseline 1.1 Objective: Vital Signs Temp Pulse Resp BP Pulse Ox 36.8 C 76 14 134/55 H 91 L 05/19/17 15:36 05/19/17 15:36 05/19/17 15:36 05/19/17 15:36 05/19/17 15:36 Laboratory Results 05/19/17 08:28 05/19/17 08:28 05/18/17 05/19/17 05/20/17 06:59 06:59 06:59 Intake Total 4130 700 120 Output Total 1400 1750 750 Balance 2730 -1050 -630 PT 14.7 SEC (12.0-15.0) 05/17/17 03:40 INR 1.15 (0.83-1.16) 05/17/17 03:40 ICD10 Worksheet Patient Problems: Problems Problem Status Onset PVD (peripheral vascular disease) with claudication Acute
[2017-05-19] MEDS: GABAPENTIN 100 MG CAP PO SCH (19:23)
[2017-05-19] MEDS: POLYETHYLENE GLYCOL 3350 17 GM PKT PO SCH (19:23)
[2017-05-20] MEDS: HEPARIN 5,000 UNIT/0.5 ML SYR SC SCH ×3 (06:14→20:21)
[2017-05-20] MEDS: PANTOPRAZOLE SODIUM 40 MG TAB PO SCH (09:09)
[2017-05-20] MEDS: VENLAFAXINE XR 150 MG CAP PO SCH (09:09)
[2017-05-20] MEDS: ATORVASTATIN CALCIUM 10 MG TAB PO SCH (09:09)
[2017-05-20] MEDS: CHOLECALCIFEROL VIT D3 1,000 UNITS TAB PO SCH (09:09)
[2017-05-20] MEDS: amLODIPine BESYLATE 5 MG TAB PO SCH (09:11)
--- NOTE | 2017-05-20 11:09 | SOAPPROG ---
SOAP Progress Note Assessment/Plan: Assessment/Plan: 86 Y F s/p femoral endarterectomy and profundoplasty, fem pop bypass. Seen with Dr. Dykes. PT/OT. OOB. Avoid severe hip flexion. UA/culture if indicated. Then d/c singh. Continue local wound care. Dispo: pending. Probably needs SNF. S: has sat oob. pain controlled--lower leg and wound less painful since surgery. O: alert, nad no wob rrr abd soft inc's cdi. L PT>DP pulses on doppler, nonpalpable on my exam 05/20/17 13:06 Objective: Vital Signs Temp Pulse Resp BP Pulse Ox 36.6 C 75 14 149/70 H 92 05/20/17 08:00 05/20/17 08:00 05/20/17 08:00 05/20/17 08:00 05/20/17 08:00 Laboratory Results 05/19/17 08:28 05/19/17 08:28 05/19/17 05/20/17 05/21/17 05:59 05:59 05:59 Intake Total 700 1120 Output Total 1750 1300 1450 Balance -1050 -180 -1450 PT 14.7 SEC (12.0-15.0) 05/17/17 03:40 INR 1.15 (0.83-1.16) 05/17/17 03:40 ICD10 Worksheet Patient Problems: Problems Problem Status Onset PVD (peripheral vascular disease) with claudication Acute
[2017-05-20 13:18] LABS: COLOR AMBER; LEUKOCYTE ESTERASE,URINE 3+ (NEGATIVE); NITRITE,URINE POSITIVE (NEGATIVE)
[2017-05-20 13:21] LABS: BACTERIA 4+ /hpf (NONE SEEN); RBC,URINE 50-182 /hpf (0-3); WBC,URINE 50-182 /hpf (0-3)
[2017-05-20] MEDS: HYDROCODONE/APAP 5/325 TAB PO PRN ×2 (13:59→20:20)
--- NOTE | 2017-05-20 17:44 | HOSPPROG ---
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 Objective: Vital Signs Temp Pulse Resp BP Pulse Ox 37.0 C 89 14 157/70 H 93 05/20/17 16:00 05/20/17 16:00 05/20/17 16:00 05/20/17 16:00 05/20/17 16:00 Laboratory Results 05/19/17 08:28 05/19/17 08:28 05/19/17 05/20/17 05/21/17 05:59 05:59 05:59 Intake Total 700 1120 550 Output Total 1750 1300 1450 Balance -1050 -180 -900 PT 14.7 SEC (12.0-15.0) 05/17/17 03:40 INR 1.15 (0.83-1.16) 05/17/17 03:40 - Physical Exam Constitutional: no apparent distress, appears nourished, not in pain Cardiovascular: regular rate and rhythym, no murmur, rub, or gallop Respiratory: no respiratory distress, no rales or rhonchi, clear to auscultation Gastrointestinal: normoactive bowel sounds, soft, non-tender abdomen, no palpable masses Skin: no rashes or abrasions, no fluctuance, no induration Neurologic: AAOx3, sensation intact bilaterally Psychiatric: interacting appropriately, not anxious, not encephalopathic, thought process linear ICD10 Worksheet Patient Problems: Problems Problem Status Onset PVD (peripheral vascular disease) with claudication Acute
[2017-05-20] MEDS: POLYETHYLENE GLYCOL 3350 17 GM PKT PO SCH (20:16)
[2017-05-20] MEDS: GABAPENTIN 100 MG CAP PO SCH (20:16)
[2017-05-20] MEDS: LISINOPRIL 20 MG TAB PO SCH (20:16)
[2017-05-21] MEDS: HYDROCODONE/APAP 5/325 TAB PO PRN ×3 (04:06→20:20)
[2017-05-21] MEDS: HEPARIN 5,000 UNIT/0.5 ML SYR SC SCH ×3 (04:06→20:28)
[2017-05-21] MEDS: traMADol 50 MG TAB PO PRN ×2 (05:09→08:50)
[2017-05-21 05:30] LABS: % IMMATURE GRANULYOCYTES 1.2 % (0.0-1.1); ABSOLUTE IMMATURE GRANULOCYTES 0.13 10^3/uL (0.00-0.10); ADD DIFF? NO; ADD MORPH? YES; ADD SCAN? NO; ATYPICAL LYMPHOCYTE FLAG 0 (0-99); FRAGMENT RBC FLAG 60 (0-99); HEMOGLOBIN 9.5 g/dL (12.6-16.3); LEFT SHIFT FLG 60 (0-99); LIPEMIA HEMOLYSIS FLAG 80 (0-99); MEAN CELL HEMOGLOBIN 22.6 pg (27.9-34.1); MEAN CELL HEMOGLOBIN CONCENTR. 31.7 g/dL (32.4-36.7); MEAN CELL VOLUME 71.4 fL (81.5-99.8); MEAN PLATELET VOLUME 12.4 fL (8.7-11.7); PLATELET CLUMPS FLAG 10 (0-99); PLATELET COUNT 259 10^3/uL (150-400)
[2017-05-21 05:52] LABS: ANION GAP 10 mEq/L (8-16); CALCIUM 9.1 mg/dL (8.5-10.4); CARBON DIOXIDE 20 mEq/l (22-31); CHLORIDE 109 mEq/L (97-110); CREATININE 1.1 mg/dL (0.6-1.0); GLOMERULAR FILTRATION RATE 47; GLUCOSE 91 mg/dL (70-100); POTASSIUM 4.4 mEq/L (3.5-5.2); SODIUM 139 mEq/L (134-144)
[2017-05-21 05:57] LABS: RED CELL DISTRIBUTION WIDTH 20.7 % (11.5-15.2)
[2017-05-21 07:11] LABS: TARGET CELLS 1+
[2017-05-21 07:12] LABS: HYPOCHROMIA 2+; MICROCYTES 2+; POLYCHROMASIA 1+
[2017-05-21 07:13] LABS: PLATELET ESTIMATE ADEQUATE (ADEQ)
[2017-05-21] MEDS: CHOLECALCIFEROL VIT D3 1,000 UNITS TAB PO SCH (08:31)
[2017-05-21] MEDS: VENLAFAXINE XR 150 MG CAP PO SCH (08:31)
[2017-05-21] MEDS: ASPIRIN EC 81 MG TAB PO SCH (08:31)
[2017-05-21] MEDS: PANTOPRAZOLE SODIUM 40 MG TAB PO SCH (08:31)
[2017-05-21] MEDS: ATORVASTATIN CALCIUM 10 MG TAB PO SCH (08:32)
[2017-05-21] MEDS: amLODIPine BESYLATE 5 MG TAB PO SCH (08:32)
[2017-05-21] MEDS: ALLOPURINOL 100 MG TAB PO SCH (08:32)
--- NOTE | 2017-05-21 10:02 | WOCRNPDOC ---
WOCRN Advanced Assessment Note - Skin Integrity Problem, Advanced Assess Left Lower Leg Arterial Ulcer Dressing Type: Alginate, Allevyn Life Dressing Description: Intact, Shadowed Exudate Color: Yellow Exudate Characteristic(s): Cloudy, Thick Integumentary Issue Intervention: Visualized Under Dressing Imelda Wound Tissue: Erythema (minimal), Painful/Tender (minimal. Pain greatly improved since previous assessment) Wound Bed Color: Red, Yellow Wound Bed Constitution: Granulation Tissue (70%), Loose Slough (30%) Site Measurement - Head-to-Toe Length X Width X Depth (cm): 2x1.5x0.6 Skin Integrity Problem Comment: Wound on anterior and lateral lower leg have dried up and are covered with dried exudate. 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 Posterior wound which also was the deepest needs some mechanical debridement. Relayed this to RN. Will continue plan of care and add some collagen to encourage closure. Wound care will round in one week.
--- NOTE | 2017-05-21 10:31 | SOAPPROG ---
MAAME Progress Note Assessment/Plan: Assessment/Plan: 86 Y F s/p femoral endarterectomy and profundoplasty, fem pop bypass. PT/OT. OOB. Avoid severe hip flexion. Culture indicated, will follow micro. D/c samantha in am. Continue local wound care. Dispo: pending. Probably needs SNF. S: has sat oob. pain controlled--lower leg and wound less painful since surgery. O: alert, nad no wob rrr abd soft inc's cdi. L PT>DP pulses on doppler, nonpalpable on my exam--per Dr. Dykes, he was able to palpate L PT pulse today 05/21/17 11:54 Objective: Vital Signs Temp Pulse Resp BP Pulse Ox 36.8 C 72 14 145/68 H 94 05/21/17 07:45 05/21/17 07:45 05/21/17 07:45 05/21/17 08:32 05/21/17 07:45 Laboratory Results 05/21/17 04:00 05/21/17 04:00 05/20/17 05/21/17 05/22/17 05:59 05:59 05:59 Intake Total 1120 1450 240 Output Total 1300 2300 Balance -180 -850 240 PT 14.7 SEC (12.0-15.0) 05/17/17 03:40 INR 1.15 (0.83-1.16) 05/17/17 03:40 ICD10 Worksheet Patient Problems: Problems Problem Status Onset PVD (peripheral vascular disease) with claudication Acute
--- NOTE | 2017-05-21 16:39 | HOSPPROG ---
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 Objective: Vital Signs Temp Pulse Resp BP Pulse Ox 36.3 C 74 18 121/61 H 91 L 05/21/17 15:20 05/21/17 15:20 05/21/17 15:20 05/21/17 15:20 05/21/17 15:20 Laboratory Results 05/21/17 04:00 05/21/17 04:00 05/20/17 05/21/17 05/22/17 05:59 05:59 05:59 Intake Total 1120 1450 240 Output Total 1300 2300 Balance -180 -850 240 PT 14.7 SEC (12.0-15.0) 05/17/17 03:40 INR 1.15 (0.83-1.16) 05/17/17 03:40 - Physical Exam Constitutional: no apparent distress, appears nourished, not in pain Cardiovascular: regular rate and rhythym, no murmur, rub, or gallop Respiratory: no respiratory distress, no rales or rhonchi, clear to auscultation Gastrointestinal: normoactive bowel sounds, soft, non-tender abdomen, no palpable masses Neurologic: AAOx3, sensation intact bilaterally Psychiatric: interacting appropriately, not anxious, not encephalopathic, thought process linear ICD10 Worksheet Patient Problems: Problems Problem Status Onset PVD (peripheral vascular disease) with claudication Acute
[2017-05-21] MEDS: POLYETHYLENE GLYCOL 3350 17 GM PKT PO SCH (16:54)
[2017-05-21] MEDS: LISINOPRIL 20 MG TAB PO SCH (20:18)
[2017-05-21] MEDS: GABAPENTIN 100 MG CAP PO SCH (20:18)
[2017-05-22] MEDS: HEPARIN 5,000 UNIT/0.5 ML SYR SC SCH ×3 (06:25→21:38)
[2017-05-22] MEDS: traMADol 50 MG TAB PO PRN (06:38)
[2017-05-22] MEDS: ALLOPURINOL 100 MG TAB PO SCH (09:20)
[2017-05-22] MEDS: amLODIPine BESYLATE 5 MG TAB PO SCH (09:20)
[2017-05-22] MEDS: ASPIRIN EC 81 MG TAB PO SCH (09:21)
[2017-05-22] MEDS: CHOLECALCIFEROL VIT D3 1,000 UNITS TAB PO SCH (09:21)
[2017-05-22] MEDS: ATORVASTATIN CALCIUM 10 MG TAB PO SCH (09:21)
[2017-05-22] MEDS: VENLAFAXINE XR 150 MG CAP PO SCH (09:21)
[2017-05-22] MEDS: PANTOPRAZOLE SODIUM 40 MG TAB PO SCH (09:21)
[2017-05-22] MEDS: HYDROCODONE/APAP 5/325 TAB PO PRN (09:32)
[2017-05-22] MEDS ORDERED: MAGNESIUM HYDROXIDE 30 ML UDCUP PO PRN (10:01)
[2017-05-22] MEDS ORDERED: LACTULOSE 20 GM/30 ML UDCUP PO PRN (10:01)
[2017-05-22] MEDS ORDERED: POLYETHYLENE GLYCOL 3350 17 GM PKT PO PRN (10:01)
[2017-05-22] MEDS ORDERED: BISACODYL 10 MG SUPP PR PRN (10:01)
--- NOTE | 2017-05-22 13:15 | SOAPPROG ---
[facility] Progress Note Assessment/Plan: Assessment/Plan: 86 Y F s/p femoral endarterectomy and profundoplasty, fem pop bypass. UTI. Pseudomonas. Sensitive to levaquin that was started yesterday. Needs continued PT/OT. Pain control. Knee pain expected--extensive surgical dissection to get to popliteal artery. Appreciate hospitalist input and care. Dispo: SNF in am. S: Had horrible knee pain. Now better. O: alert, nad no wob rrr abd soft inc's cdi. L PT>DP pulses on doppler, nonpalpable on my exam--per Dr. Dykes, he was able to palpate L PT pulse yesterday 05/22/17 13:09 Objective: Vital Signs Temp Pulse Resp BP Pulse Ox 36.4 C 63 18 125/51 H 93 05/22/17 11:15 05/22/17 11:15 05/22/17 11:15 05/22/17 11:15 05/22/17 11:15 Microbiology 05/20/17 13:19 Urine Culture - Final Urine,Clean Catch Pseudomonas Aeruginosa Laboratory Results 05/21/17 04:00 05/21/17 04:00 05/21/17 05/22/17 05/23/17 05:59 05:59 05:59 Intake Total 1450 1090 Output Total 2300 1200 Balance -850 -110 PT 14.7 SEC (12.0-15.0) 05/17/17 03:40 INR 1.15 (0.83-1.16) 05/17/17 03:40 ICD10 Worksheet Patient Problems: Problems Problem Status Onset PVD (peripheral vascular disease) with claudication Acute
--- NOTE | 2017-05-22 13:21 | PDIAF ---
- Diagnosis Diagnosis: s/p fem pop bypass with endarterectomy Code Status: Do Not Resuscitate - Medication Management Discharge Medications: Medications to Continue on Transfer Allopurinol [Allopurinol 100 MG (*)] 100 mg PO DAILY 05/10/17 [Last Taken ] Atorvastatin Calcium [Lipitor 10 mg (*)] 10 mg PO DAILY 05/10/17 [Last Taken 03/27] Cholecalciferol Vit D3 [Vitamin D3 (*)] 1,000 units PO DAILY 05/10/17 [Last Taken 05/15/17] Gabapentin [Neurontin 100 MG (*)] 100 mg PO HS 05/10/17 [Last Taken 05/14/17] Hydrocodone/Acetaminophen [[place] 5/325 (*)] 1 - 2 tab PO Q4H PRN 05/10/17 [Last Taken 05/15/17] Lisinopril [Zestril 20 mg (*)] 20 mg PO HS 05/10/17 [Last Taken 05/14/17] Omeprazole [Prilosec 20 mg] 20 mg PO DAILY 05/10/17 [Last Taken 05/15/17] Venlafaxine Xr [Effexor Xr] 150 mg PO DAILY 05/10/17 [Last Taken 05/15/17] amLODIPine BESYLATE [Norvasc 5 mg (*)] 5 mg PO DAILY 05/10/17 [Last Taken ] traMADol [Ultram 50 mg (*)] 50 mg PO Q4 PRN 05/10/17 [Last Taken 05/15/17] celeCOXIB [CeleBREX] 100 mg PO DAILY #0 05/22/17 [Last Taken 05/15/17 1 cap] levOFLOXACIN [levAQUIN (*)] 750 mg PO DAILY AT 10AM #1 tab 05/22/17 [Last Taken Unknown] Discharge Medications: Refer to the Discharge Home Medication list for PRN reason. - Orders Services needed: Home Care, Registered Nurse, Certified Spa Manager, Physical Therapy, Occupational Therapy Home Care Face to Face: I certify that this patient was under my care and that I had the required [id number] encounter meeting the encounter requirements on the discharge day. My findings support the fact that the patient is homebound as defined in CMS Chapter 7 Medicare Benefits Manual 30.1.1, The condition of the patient is such that there exists a normal inability to leave home and consequently, leaving home would require a considerable and taxing effort. Diet Recommendation: no restrictions on diet Diet Texture: Regular Texture Diet Wound Care Instructions: may leave incisions open to air if dry. if moist/ drainage then dress with gauze and tape daily. Ok to get wounds wet in shower, do not submerge in bath/pool. Allevyn dressing to posterior calf wound daily Sutures/Shemar Site: to be removed in office - Follow Up Care Current Providers and Referrals: Marguerite Reynoso MD [Primary Care Provider] - Ronald Dykes MD [Medical Doctor] - follow up in 1 week
--- NOTE | 2017-05-22 16:14 | HOSPPROG ---
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 * Hypoxia -check CXR * Pseudomonas UTI - sensitive to levaquin Subjective: c/o breif knee pain this am, now gone Objective: Vital Signs Temp Pulse Resp BP Pulse Ox 36.9 C 71 18 127/56 H 96 05/22/17 15:23 05/22/17 15:23 05/22/17 15:23 05/22/17 15:23 05/22/17 15:23 Microbiology 05/20/17 13:19 Urine Culture - Final Urine,Clean Catch Pseudomonas Aeruginosa Laboratory Results 05/21/17 04:00 05/21/17 04:00 05/21/17 05/22/17 05/23/17 05:59 05:59 05:59 Intake Total 1450 1090 Output Total 2300 1200 Balance -850 -110 PT 14.7 SEC (12.0-15.0) 05/17/17 03:40 INR 1.15 (0.83-1.16) 05/17/17 03:40 d/w Kelly CORDERO - discharge to SNF in am - transfer to our service for discharge and we will do discharge - Physical Exam Constitutional: no apparent distress, appears nourished, not in pain Cardiovascular: regular rate and rhythym, no murmur, rub, or gallop Respiratory: no respiratory distress, no rales or rhonchi, clear to auscultation Gastrointestinal: normoactive bowel sounds, soft, non-tender abdomen, no palpable masses Skin: no rashes or abrasions, no fluctuance, no induration Neurologic: AAOx3, sensation intact bilaterally Psychiatric: interacting appropriately, not anxious, not encephalopathic, thought process linear ICD10 Worksheet Patient Problems: Problems Problem Status Onset PVD (peripheral vascular disease) with claudication Acute
--- NOTE | 2017-05-22 18:04 | GOP ---
[f rep st] OPERATIVE REPORT DATE OF OPERATION: 05/17/2017 SURGEON: Ronald Dykes MD [facility] [facility] OPERATOR: FINN Garvin ANESTHESIOLOGIST: Dr. Yanes. PREOPERATIVE DIAGNOSIS: Nonhealing ulcer to the left foot. POSTOPERATIVE DIAGNOSIS: Nonhealing ulcer to the left foot. PROCEDURE PERFORMED: Left common femoral endarterectomy with a left femoral popliteal bypass and pr ofundoplasty. FINDINGS: The patient was found to have a markedly calcified common femoral artery with minimal inf low. This involved the origin of the profunda as well. Postoperatively, she had positive pedal pul ses. Her foot was warm with good capillary filling. The popliteal artery itself was soft with some backflow. ESTIMATED BLOOD LOSS: Less than 100 cc. DESCRIPTION OF PROCEDURE: Patient was taken to the operating room, where she received satisfactory general endotracheal anesthesia by Dr. Yanes, placed in supine position, prepped and draped in the u sual sterile fashion. A vertical incision was made in the inguinal area and dissection extended agustín n through subcutaneous tissue. The common femoral, profunda femoris, and superficial femoral artery were all dissected free and controlled with vessel loops. The common femoral was markedly calcifie d. Dissection extended up underneath the inguinal ligament, which was partially divided to help fin d a softer place on the vessels for eventual cross clamping. This was done and multiple branches we re looped as well. A second incision was then made in the medial aspect of the thigh, dissection ex tended down into the popliteal space. Then after some difficulty, the popliteal artery was identifi ed. It was dissected free and controlled with vessel loops. It was surprisingly soft at the poplit eal level. After adequate exposure was obtained, the patient was heparinized. After adequate circu lation time, the external iliac artery was cross clamped, as well as the profunda and superficial fe moral arteriotomy was done in the common femoral artery, immediately encountering a massive calcium blockage in this artery. Endarterectomy was then done, removing this calcium block all the way from the external iliac down through the origin of the superficial femoral artery. Plaque also extended to the profunda femoris and incision was extended down the profunda for 2 cm, removing the calcifie d plaque in the origin of the profunda as well. Good backflow was present from the profunda, minima l backflow from the superficial femoral, and good inflow was established through the common femoral. All vessels were flushed. The 5-ringed tapered graft was selected of [place]. The graft was tri mmed to the appropriate size. It was sutured in place as a profundoplasty over the profunda and com mon femoral arteries with a running Hemashield 7 suture. Blood flow was reestablished through the g raft initially, then through the superficial femoral artery, and then down the profunda. The graft was clamped off. A subsartorial tunnel was made down into the popliteal space. The graft was then passed in retrograde fashion down to the above-knee incision. It was trimmed to the appropriate toñito gth and an end-to-side anastomosis was then made to the popliteal artery, again using a running Hardik shield 6 suture. All vessels were flushed prior to completion of the anastomosis and flow was first established back up the [place] SFA and then distally down to the foot. There was a good pulse in t he graft and the popliteal artery below this. Pedal pulses were difficult to feel, but were present on Doppler. The foot was warm. Heparin was reversed with protamine and the wounds were irrigated and sprayed with some topical thrombin and infiltrated with 0.5% Marcaine. Both incisions were then closed in layers using 2-0 Vicryl for the fascia, 3-0 Vicryl for the subcu, and skin alexey for th e skin. She tolerated the procedure quite well. She was taken to the recovery room in good conditi on. COMPLICATIONS: There were no complications. /[id number]/MODL
[2017-05-22] MEDS: SENNOSIDES/DOCUSATE SODIUM TAB PO SCH (19:49)
[2017-05-22] MEDS: LISINOPRIL 20 MG TAB PO SCH (19:49)
[2017-05-22] MEDS: POLYETHYLENE GLYCOL 3350 17 GM PKT PO SCH (19:49)
[2017-05-22] MEDS: GABAPENTIN 100 MG CAP PO SCH (19:49)
[2017-05-23 04:48] LABS: % IMMATURE GRANULYOCYTES 1.7 % (0.0-1.1); ABSOLUTE IMMATURE GRANULOCYTES 0.17 10^3/uL (0.00-0.10); ADD DIFF? NO; ADD MORPH? YES; ADD SCAN? NO; ATYPICAL LYMPHOCYTE FLAG 0 (0-99); FRAGMENT RBC FLAG 60 (0-99); HEMATOCRIT 25.8 % (38.0-47.0); HEMOGLOBIN 8.2 g/dL (12.6-16.3); LEFT SHIFT FLG 80 (0-99); LIPEMIA HEMOLYSIS FLAG 80 (0-99); MEAN CELL HEMOGLOBIN 22.5 pg (27.9-34.1); MEAN CELL HEMOGLOBIN CONCENTR. 31.8 g/dL (32.4-36.7); MEAN CELL VOLUME 70.7 fL (81.5-99.8); PLATELET CLUMPS FLAG 20 (0-99); PLATELET COUNT 247 10^3/uL (150-400); RED BLOOD CELL COUNT 3.65 10^6/uL (4.18-5.33)
[2017-05-23 04:54] LABS: RED CELL DISTRIBUTION WIDTH 20.2 % (11.5-15.2)
[2017-05-23 05:06] LABS: ANION GAP 9 mEq/L (8-16); CALCIUM 9.2 mg/dL (8.5-10.4); CARBON DIOXIDE 22 mEq/l (22-31); CHLORIDE 107 mEq/L (97-110); CREATININE 1.6 mg/dL (0.6-1.0); GLOMERULAR FILTRATION RATE 31; GLUCOSE 95 mg/dL (70-100); POTASSIUM 4.8 mEq/L (3.5-5.2); SODIUM 138 mEq/L (134-144)
[2017-05-23 05:43] LABS: ACANTHOCYTES 1+; ELLIPTOCYTES 1+; HYPOCHROMIA 2+; MICROCYTES 2+; PLATELET ESTIMATE ADEQUATE (ADEQ)
[2017-05-23] MEDS: HEPARIN 5,000 UNIT/0.5 ML SYR SC SCH ×3 (06:00→21:31)
[2017-05-23] MEDS: amLODIPine BESYLATE 5 MG TAB PO SCH (09:21)
[2017-05-23] MEDS: PANTOPRAZOLE SODIUM 40 MG TAB PO SCH (09:21)
[2017-05-23] MEDS: ALLOPURINOL 100 MG TAB PO SCH (09:21)
[2017-05-23] MEDS: CHOLECALCIFEROL VIT D3 1,000 UNITS TAB PO SCH (09:21)
[2017-05-23] MEDS: ATORVASTATIN CALCIUM 10 MG TAB PO SCH (09:21)
[2017-05-23] MEDS: ASPIRIN EC 81 MG TAB PO SCH (09:21)
[2017-05-23] MEDS: VENLAFAXINE XR 150 MG CAP PO SCH (09:21)
[2017-05-23] MEDS: SENNOSIDES/DOCUSATE SODIUM TAB PO SCH ×2 (09:24→21:31)
[2017-05-23] MEDS: traMADol 50 MG TAB PO PRN ×2 (10:45→15:50)
[2017-05-23] MEDS: NS 1,000 ML IV SCH ×2 (11:56→23:14)
[2017-05-23] MEDS: HYDROCODONE/APAP 5/325 TAB PO PRN (12:39)
--- NOTE | 2017-05-23 13:09 | SOAPPROG ---
SOAP Progress Note Assessment/Plan: Assessment: APPEARS TO BE DOING WELL WITH CORRECTION OF HER POTASSIUM AND CREATININE LEVELS/ RISKS AND OPTIONS FULLY DISCUSSED AND SHE WISHES TO PROCEED WITH SURGERY TOMORROW Plan: LEFT FEM-POP BYPASS 05/16/17 18:57 05/23/17 13:08 WOUNDS OK/ AFEBRILE/ +PULSES/ LEFT CALF ULCER STILL SORE/ HOME SOON/ AMBULATING Objective: Vital Signs Temp Pulse Resp BP Pulse Ox 36.6 C 59 L 17 134/60 H 88 L 05/23/17 08:00 05/23/17 08:00 05/23/17 08:00 05/23/17 08:00 05/23/17 12:00 Microbiology 05/20/17 13:19 Urine Culture - Final Urine,Clean Catch Pseudomonas Aeruginosa Laboratory Results 05/23/17 03:32 05/23/17 03:32 05/22/17 05/23/17 05/24/17 05:59 05:59 05:59 Intake Total 1090 200 Output Total 1200 250 Balance -110 -50 PT 14.7 SEC (12.0-15.0) 05/17/17 03:40 INR 1.15 (0.83-1.16) 05/17/17 03:40 ICD10 Worksheet Patient Problems: Problems Problem Status Onset PVD (peripheral vascular disease) with claudication Acute
--- NOTE | 2017-05-23 17:11 | HOSPPROG ---
Hospitalist Progress Note Assessment/Plan: * PVD s/p fem-pop bypass * Non-healing arterial ulcers to LE -wound care * ARF on chronic CKD -creatinine back up today -DC lisinopril, DC celebrex -gentle IVF overnight and recheck am * Gout - increasing knee pain -d/w surgery - knee pain likely more related to surgical dissection * Hyperkalemia - -DC lisinopril * Thalassemia minor * Chronic anemia due to chronic GIB * Hypoxia - likely due to atelectasis -LE US negative for DVT - suspect PE less likely * Pseudomonas UTI - sensitive to levaquin Subjective: Knee pain intermittent but not bad Objective: Vital Signs Temp Pulse Resp BP Pulse Ox 36.6 C 61 18 134/59 H 97 05/23/17 16:00 05/23/17 16:00 05/23/17 16:00 05/23/17 16:00 05/23/17 16:00 Laboratory Results 05/23/17 03:32 05/23/17 03:32 05/22/17 05/23/17 05/24/17 05:59 05:59 05:59 Intake Total 1090 200 250 Output Total 1200 250 200 Balance -110 -50 50 PT 14.7 SEC (12.0-15.0) 05/17/17 03:40 INR 1.15 (0.83-1.16) 05/17/17 03:40 CXR viewed, my personal interpretation is - atelectasis US left leg - negative for DVT - Physical Exam Constitutional: no apparent distress, appears nourished, not in pain Cardiovascular: regular rate and rhythym, no murmur, rub, or gallop, edema (1+ left) Respiratory: no respiratory distress, no rales or rhonchi, clear to auscultation Gastrointestinal: normoactive bowel sounds, soft, non-tender abdomen, no palpable masses Skin: no rashes or abrasions, no fluctuance, no induration Neurologic: AAOx3, sensation intact bilaterally Psychiatric: interacting appropriately, not anxious, not encephalopathic, thought process linear ICD10 Worksheet Patient Problems: Problems Problem Status Onset PVD (peripheral vascular disease) with claudication Acute
[2017-05-23] MEDS: GABAPENTIN 100 MG CAP PO SCH (21:30)
[2017-05-23] MEDS: POLYETHYLENE GLYCOL 3350 17 GM PKT PO SCH (21:30)
[2017-05-24 05:08] LABS: % IMMATURE GRANULYOCYTES 2.5 % (0.0-1.1); ABSOLUTE IMMATURE GRANULOCYTES 0.21 10^3/uL (0.00-0.10); ADD DIFF? NO; ADD MORPH? YES; ADD SCAN? NO; ATYPICAL LYMPHOCYTE FLAG 0 (0-99); FRAGMENT RBC FLAG 60 (0-99); HEMATOCRIT 24.8 % (38.0-47.0); HEMOGLOBIN 7.8 g/dL (12.6-16.3); LEFT SHIFT FLG 60 (0-99); LIPEMIA HEMOLYSIS FLAG 80 (0-99); MEAN CELL HEMOGLOBIN 22.6 pg (27.9-34.1); MEAN CELL HEMOGLOBIN CONCENTR. 31.5 g/dL (32.4-36.7); MEAN CELL VOLUME 71.9 fL (81.5-99.8); MEAN PLATELET VOLUME 12.5 fL (8.7-11.7); PLATELET CLUMPS FLAG 0 (0-99); PLATELET COUNT 246 10^3/uL (150-400); RED BLOOD CELL COUNT 3.45 10^6/uL (4.18-5.33)
[2017-05-24 05:10] LABS: RED CELL DISTRIBUTION WIDTH 20.7 % (11.5-15.2)
[2017-05-24 05:13] LABS: ANION GAP 8 mEq/L (8-16); CALCIUM 8.9 mg/dL (8.5-10.4); CARBON DIOXIDE 21 mEq/l (22-31); CHLORIDE 111 mEq/L (97-110); CREATININE 1.4 mg/dL (0.6-1.0); GLOMERULAR FILTRATION RATE 36; GLUCOSE 78 mg/dL (70-100); POTASSIUM 4.7 mEq/L (3.5-5.2); SODIUM 140 mEq/L (134-144)
[2017-05-24] MEDS: HEPARIN 5,000 UNIT/0.5 ML SYR SC SCH ×3 (05:30→20:55)
[2017-05-24 05:52] LABS: HYPOCHROMIA 2+; MICROCYTES 1+; POLYCHROMASIA 1+
[2017-05-24 05:53] LABS: ELLIPTOCYTES 1+; PLATELET ESTIMATE ADEQUATE (ADEQ); SCHISTOCYTES 1+
[2017-05-24 05:54] LABS: ACANTHOCYTES 1+
[2017-05-24] MEDS: NS 1,000 ML IV SCH ×2 (09:25→18:09)
[2017-05-24] MEDS: SENNOSIDES/DOCUSATE SODIUM TAB PO SCH ×2 (09:46→20:55)
[2017-05-24] MEDS: PANTOPRAZOLE SODIUM 40 MG TAB PO SCH (09:46)
[2017-05-24] MEDS: ASPIRIN EC 81 MG TAB PO SCH (09:47)
[2017-05-24] MEDS: amLODIPine BESYLATE 5 MG TAB PO SCH (09:47)
[2017-05-24] MEDS: ALLOPURINOL 100 MG TAB PO SCH (09:47)
[2017-05-24] MEDS: ATORVASTATIN CALCIUM 10 MG TAB PO SCH (09:47)
[2017-05-24] MEDS: CHOLECALCIFEROL VIT D3 1,000 UNITS TAB PO SCH (09:47)
[2017-05-24] MEDS: VENLAFAXINE XR 150 MG CAP PO SCH (09:47)
[2017-05-24] MEDS ORDERED: HYDROCODONE/APAP 5/325 TAB PO PRN (10:42)
[2017-05-24] MEDS: traMADol 50 MG TAB PO PRN ×2 (13:44→20:53)
--- NOTE | 2017-05-24 16:03 | SOAPPROG ---
SOAP Progress Note Assessment/Plan: Assessment: APPEARS TO BE DOING WELL WITH CORRECTION OF HER POTASSIUM AND CREATININE LEVELS/ RISKS AND OPTIONS FULLY DISCUSSED AND SHE WISHES TO PROCEED WITH SURGERY TOMORROW Plan: LEFT FEM-POP BYPASS 05/16/17 18:57 05/23/17 13:08 WOUNDS OK/ AFEBRILE/ +PULSES/ LEFT CALF ULCER STILL SORE/ HOME SOON/ AMBULATING 05/24/17 16:02 Wound okay/afebrile/ palpable pulses/ambulating poorly/ultrasound negative for DVT Objective: Vital Signs Temp Pulse Resp BP Pulse Ox 37.0 C 63 18 146/58 H 95 05/24/17 15:46 05/24/17 15:46 05/24/17 15:46 05/24/17 15:46 05/24/17 15:46 Laboratory Results 05/24/17 03:47 05/24/17 03:47 05/23/17 05/24/17 05/25/17 05:59 05:59 05:59 Intake Total 200 2150 Output Total 250 200 Balance -50 1950 PT 14.7 SEC (12.0-15.0) 05/17/17 03:40 INR 1.15 (0.83-1.16) 05/17/17 03:40 ICD10 Worksheet Patient Problems: Problems Problem Status Onset PVD (peripheral vascular disease) with claudication Acute
--- NOTE | 2017-05-24 18:41 | HOSPPROG ---
Hospitalist Progress Note Assessment/Plan: # ARF on chronic CKD - creatinine 1.4 this am- oxygen saturations 95% on RA -hold lisinopril, -hold celebrex - cont gentle IVF # PVD s/p fem-pop bypass # Non-healing arterial ulcers to LE -wound care # Gout - increasing knee pain pain consistent with surgical dissection # Hyperkalemia - potassium 4.7 this am -cont to hold lisinopril # Thalassemia minor # Chronic anemia due to chronic GIB # Hypoxia -CXR (personally reviewed and interpreted) shows atelectasis -LE US negative for DVT - - encourage IS # Pseudomonas UTI - sensitive to levaquin # dispo - > 2MN as pt requires monitoring and IVF for DAVINA I have discussed the case with surgery - home soon Subjective: denies cp or SOB Objective: Vital Signs Temp Pulse Resp BP Pulse Ox 37.0 C 63 18 146/58 H 95 05/24/17 15:46 05/24/17 15:46 05/24/17 15:46 05/24/17 15:46 05/24/17 15:46 Laboratory Results 05/24/17 03:47 05/24/17 03:47 05/23/17 05/24/17 05/25/17 05:59 05:59 05:59 Intake Total 200 2150 1450 Output Total 250 200 330 Balance -50 1950 1120 PT 14.7 SEC (12.0-15.0) 05/17/17 03:40 INR 1.15 (0.83-1.16) 05/17/17 03:40 - Physical Exam Eyes: anicteric sclera Ears, Nose, Mouth, Throat: moist mucous membranes Cardiovascular: regular rate and rhythym Respiratory: inspiratory crackles Gastrointestinal: normoactive bowel sounds Genitourinary: no bladder fullness Skin: warm Musculoskeletal: No asymmetric calves Neurologic: AAOx3 Psychiatric: interacting appropriately, not anxious Lymph, Heme, Immunologic: no cervical LAD ICD10 Worksheet Patient Problems: Problems Problem Status Onset PVD (peripheral vascular disease) with claudication Acute
[2017-05-24] MEDS: GABAPENTIN 100 MG CAP PO SCH (20:54)
[2017-05-24] MEDS: POLYETHYLENE GLYCOL 3350 17 GM PKT PO SCH (20:55)
[2017-05-25] MEDS: traMADol 50 MG TAB PO PRN ×2 (02:29→10:18)
[2017-05-25 05:01] LABS: ANION GAP 9 mEq/L (8-16); CALCIUM 8.9 mg/dL (8.5-10.4); CARBON DIOXIDE 20 mEq/l (22-31); CHLORIDE 111 mEq/L (97-110); CREATININE 1.2 mg/dL (0.6-1.0); GLOMERULAR FILTRATION RATE 43; GLUCOSE 76 mg/dL (70-100); POTASSIUM 4.6 mEq/L (3.5-5.2); SODIUM 140 mEq/L (134-144)
[2017-05-25] MEDS: HEPARIN 5,000 UNIT/0.5 ML SYR SC SCH ×2 (05:43→15:33)
[2017-05-25] MEDS: NS 1,000 ML IV SCH (05:44)
[2017-05-25 07:43] VITALS: PULSE 70; RESP 16; O2SAT 92
[2017-05-25] MEDS: ALLOPURINOL 100 MG TAB PO SCH (10:18)
[2017-05-25] MEDS: VENLAFAXINE XR 150 MG CAP PO SCH (10:18)
[2017-05-25] MEDS: ASPIRIN EC 81 MG TAB PO SCH (10:18)
[2017-05-25] MEDS: CHOLECALCIFEROL VIT D3 1,000 UNITS TAB PO SCH (10:18)
[2017-05-25] MEDS: ATORVASTATIN CALCIUM 10 MG TAB PO SCH (10:18)
[2017-05-25] MEDS: SENNOSIDES/DOCUSATE SODIUM TAB PO SCH (10:19)
[2017-05-25] MEDS: PANTOPRAZOLE SODIUM 40 MG TAB PO SCH (10:19)
[2017-05-25] MEDS: amLODIPine BESYLATE 5 MG TAB PO SCH (10:19)
--- NOTE | 2017-05-25 11:29 | SOAPPROG ---
[facility] Progress Note Assessment/Plan: Assessment/Plan: 86 Y F s/p femoral endarterectomy and profundoplasty, fem pop bypass. DAVINA UTI. Pseudomonas. Has had levaquin. Pain control. Knee pain expected--extensive surgical dissection to get to popliteal artery. Wound pain is better. Appreciate hospitalist input and care. Cr now back to 1.2. Dispo: Home vs SNF soon if medically cleared. S: Still has some knee pain. O: alert, nad no wob rrr abd soft inc's cdi. L PT>DP pulses on doppler, nonpalpable on my exam. trace edema. foot very warm. wound with granulating base now. 05/25/17 11:27 Objective: Vital Signs Temp Pulse Resp BP Pulse Ox 36.5 C 70 16 133/53 H 92 05/25/17 07:33 05/25/17 07:33 05/25/17 07:33 05/25/17 10:19 05/25/17 07:33 Laboratory Results 05/24/17 03:47 05/25/17 03:47 05/24/17 05/25/17 05/26/17 05:59 05:59 05:59 Intake Total 2150 2857 Output Total 200 330 750 Balance 1950 2527 -750 PT 14.7 SEC (12.0-15.0) 05/17/17 03:40 INR 1.15 (0.83-1.16) 05/17/17 03:40 ICD10 Worksheet Patient Problems: Problems Problem Status Onset PVD (peripheral vascular disease) with claudication Acute
--- NOTE | 2017-05-25 11:35 | HOSPPROG ---
Hospitalist Progress Note Assessment/Plan: # ARF on chronic CKD - creatinine 1.4 -> 1.2 this am- oxygen saturations 94% on RA -restart lisinopril next week -restart celebrex next week prn - dc gentle IVF # PVD s/p fem-pop bypass # Non-healing arterial ulcers to LE -wound care # Gout - increasing knee pain pain consistent with surgical dissection # Hyperkalemia - potassium 4.6 this am -cont to hold lisinopril # Thalassemia minor # Chronic anemia due to chronic GIB # Hypoxia -CXR (personally reviewed and interpreted) shows atelectasis -LE US negative for DVT - - encourage IS # Pseudomonas UTI - sensitive to levaquin # dispo - > 2MN as pt requires monitoring and IVF for DAVINA I have discussed the case with surgery - home today Subjective: didnt sleep well Objective: Vital Signs Temp Pulse Resp BP Pulse Ox 36.5 C 70 16 133/53 H 92 05/25/17 07:33 05/25/17 07:33 05/25/17 07:33 05/25/17 10:19 05/25/17 07:33 Laboratory Results 05/24/17 03:47 05/25/17 03:47 05/24/17 05/25/17 05/26/17 05:59 05:59 05:59 Intake Total 2150 2857 Output Total 200 330 750 Balance 1950 2527 -750 PT 14.7 SEC (12.0-15.0) 05/17/17 03:40 INR 1.15 (0.83-1.16) 05/17/17 03:40 - Physical Exam Constitutional: appears nourished Eyes: anicteric sclera Ears, Nose, Mouth, Throat: moist mucous membranes Cardiovascular: regular rate and rhythym, systolic murmur Respiratory: no respiratory distress, no rales or rhonchi Gastrointestinal: normoactive bowel sounds, soft, non-tender abdomen Genitourinary: no bladder fullness Skin: warm Musculoskeletal: No asymmetric calves Neurologic: AAOx3 Psychiatric: interacting appropriately, not anxious Lymph, Heme, Immunologic: no cervical LAD ICD10 Worksheet Patient Problems: Problems Problem Status Onset PVD (peripheral vascular disease) with claudication Acute
--- NOTE | 2017-05-25 14:39 | PDIAF ---
- Diagnosis Diagnosis: s/p fem pop bypass with endarterectomy Code Status: Do Not Resuscitate - Medication Management Discharge Medications: Medications to Continue on Transfer Allopurinol [Allopurinol 100 MG (*)] 100 mg PO DAILY 05/10/17 [Last Taken ] Atorvastatin Calcium [Lipitor 10 mg (*)] 10 mg PO DAILY 05/10/17 [Last Taken 03/27] Cholecalciferol Vit D3 [Vitamin D3 (*)] 1,000 units PO DAILY 05/10/17 [Last Taken 05/15/17] Gabapentin [Neurontin 100 MG (*)] 100 mg PO HS 05/10/17 [Last Taken 05/14/17] Hydrocodone/Acetaminophen [Flushing 5/325 (*)] 1 - 2 tab PO Q4H PRN 05/10/17 [Last Taken 05/15/17] Omeprazole [Prilosec 20 mg] 20 mg PO DAILY 05/10/17 [Last Taken 05/15/17] Venlafaxine Xr [Effexor Xr] 150 mg PO DAILY 05/10/17 [Last Taken 05/15/17] amLODIPine BESYLATE [Norvasc 5 mg (*)] 5 mg PO DAILY 05/10/17 [Last Taken ] traMADol [Ultram 50 mg (*)] 50 mg PO Q4 PRN 05/10/17 [Last Taken 05/15/17] celeCOXIB [CeleBREX] 100 mg PO DAILY #0 05/22/17 [Last Taken 05/15/17 1 cap] levOFLOXACIN [levAQUIN (*)] 750 mg PO DAILY AT 10AM #1 tab 05/22/17 [Last Taken Unknown] Aspirin EC [Aspirin EC 81 mg (*)] 81 mg PO DAILY #0 tab 05/25/17 [Last Taken Unknown] Lisinopril [Zestril 20 mg (*)] 20 mg PO HS #0 05/25/17 [Last Taken 05/14/17] Discharge Medications: Refer to the Discharge Home Medication list for PRN reason. - Orders Services needed: Registered Nurse, Certified Education Assistant, Physical Therapy, Occupational Therapy Diet Recommendation: no restrictions on diet Diet Texture: Regular Texture Diet Wound Care Instructions: may leave incisions open to air if dry. if moist/ drainage then dress with gauze and tape daily. Ok to get wounds wet in shower, do not submerge in bath/pool. Please resume your appointments/follow up within 2-3 weeks of discharge with outpatient wound healing center if you continue to have issues with your wounds: You may reach them at [phone] for an appointment and continued management of your wounds. Please call them maikel to schedule your appointment as they fill up quickly. If before that time you have any issues please follow up with your PCP. Protect your legs from trauma. Where knee high socks and long pants. Stop smoking. Change dressings to left lower leg wounds every 3 days and prn. 1. Clean well with ns and scrub with gauze to try and remove some of the tissue. 2. Tear off a piece of rabia promogran Ag+ and moisten with ns. Place into wound bed. . Then cut some durafiber or other alginate and fill the defect/cavity with it. 3. Cover with Allevyn Life or other silicone border dressing. Kacie Nicole CWON Sutures/[facility] Site: to be removed in office Additional: please note, patient's lisinopril should be resumed on 06/01/17. - Follow Up Care Current Providers and Referrals: Marguerite Reynoso MD [Primary Care Provider] - Ronald Dykes MD [Medical Doctor] - follow up in 1 week
[2017-05-25 15:54] VITALS: BP 142/60; TEMP 97.6
== END 2017-05-25 17:15 | DRG 253 ==
LOC: F2W 10:42 → F2N 15:34 → F2W 16:21 → F2N 05-17 15:35 → F2W 05-18 15:08
PROVIDERS: ADMIT Surgery; ATTEND Surgery
PROC: 041L0JL Bypass Left Femoral Artery to Popliteal Artery with Synthetic Substitute, Open Approach (ICD-10-PCS; principal; 2017-05-17 14:00)
PROC: 04CL0ZZ Extirpation of Matter from Left Femoral Artery, Open Approach (ICD-10-PCS; principal; 2017-05-17 14:00)
DX: I70.242 Atherosclerosis of native arteries of left leg with ulceration of calf (principal); N39.0 Urinary tract infection, site not specified; L97.329 Non-pressure chronic ulcer of left ankle with unspecified severity; D56.9 Thalassemia, unspecified; I12.9 Hypertensive chronic kidney disease with stage 1 through stage 4 chronic kidney disease, or unspecified chronic kidney disease; N18.9 Chronic kidney disease, unspecified; E87.5 Hyperkalemia; D50.0 Iron deficiency anemia secondary to blood loss (chronic); Z72.0 Tobacco use; Z85.3 Personal history of malignant neoplasm of breast; M10.4 Other secondary gout; B96.5 Pseudomonas (aeruginosa) (mallei) (pseudomallei) as the cause of diseases classified elsewhere
CPT/HCPCS: 97110-GO; 97110-GP; 97116-GP; 97162-GP; 97165-GO; 97530-GO; 97530-GP; 97535-GO; C1768; G8978-GP-CL; G8979-GP-CJ; G8987-GO-CL; G8988-GO-CJ; J0690; J1100; J1170; J1644; J2405; J2440; J2704; J2720; J3010; Q9961

== ENCOUNTER 2017-06-21 10:52 | Outpatient (CLI) | payer OTHER, MEDICARE ==
[2017-06-21] MEDS ORDERED: FUROSEMIDE 20 MG/2 ML VIAL IVP ONE ×2 (11:15→13:30)
== END 2017-06-21 18:35 | disposition home or self-care (01) ==
LOC: FOBOP 10:52
PROVIDERS: ATTEND Internal Medicine Hematology & Oncology
PROC: 30233N1 Transfusion of Nonautologous Red Blood Cells into Peripheral Vein, Percutaneous Approach (ICD-10-PCS; principal; 2017-06-21)
DX: D64.9 Anemia, unspecified (principal)
CPT/HCPCS: J1940; P9016

== ENCOUNTER → 2017-08-02 | Outpatient (CLI) | payer OTHER, MEDICARE | LOC: FOBOP 13:10 | PROVIDERS: ATTEND Internal Medicine Hematology & Oncology | PROC: 30243N1 Transfusion of Nonautologous Red Blood Cells into Central Vein, Percutaneous Approach (ICD-10-PCS; principal; 2017-08-02) | DX: D64.9 Anemia, unspecified (principal) | CPT/HCPCS: 36430; P9016 ==